=== PATIENT | female | born 1970 | race Caucasian/White ===

== ENCOUNTER 2024-08-07 07:59 | Outpatient (CLI) | payer OTHER, SELFPAY ==
[2024-08-07 20:11] LABS: Anion Gap 9 mmol/L (4-12); Blood Urea Nitrogen 12 mg/dL (7-17); Calcium 9.5 mg/dL (8.4-10.2); Carbon Dioxide 27 mmol/L (22-30); Chloride 100 mmol/L (98-107); Estimated Glomerular Filt Rate > 60; Glucose 104 mg/dL (65-110); Sodium 136 mmol/L (137-145)
--- OUTSIDE RECORDS SUMMARY | 2024-08-09 15:54 | XMS_ITS | Clinical Summary ---
Author Organization [facility] Medical Office Building [address] Address [address] [place] [address] Care Team Providers Care Grab Operator Name Role Phone Daniel Nevarez MD Primary Care Provider [phone] Yayo Nieto DPM Unavailable [phone] Allergies No known active allergies Medications spironolactone (ALDACTONE) 100 mg tablet Take 1 tablet (100 mg total) by mouth daily 022 Active cyanocobalamin (Vitamin B-12) 1,000 mcg/mL injection Inject 1 mL (1,000 mcg total) into the muscle as instructed Once a month 022 Active valACYclovir (VALTREX) 500 mg tablet TAKE 1 TABLET BY MOUTH EVERY DAY 90 tablet 024 Active SUMAtriptan (IMITREX) 100 mg tabletIndicati ons:Migraine Take 1 tablet (100 mg total) by mouth once as needed for migraine May repeat after 2 hours. 27 tablet 4 024 Active ammonium lactate (AMLACTIN) 12 % cream Apply topically as needed for dry skin Active testosterone, bulk, powder Bio Pellets every 3 months 0 024 Active Mounjaro 7.5 mg/0.5 mL pen injector INJECT 1 SYRINGE SUBCUTANEOUSLY ONCE A WEEK DIRECTED 024 Active cephalexin (KEFLEX) 500 mg capsule Take 1 capsule (500 mg total) by mouth 3 (three) times a day 21 capsule 024 Active oxyCODONE-acet aminophen (PERCOCET) 5-325 mg per tabletIndicati ons:Pain Take 1 tablet by mouth every 4 (four) hours as needed for pain 30 tablet Active omeprazole (PriLOSEC) 20 mg capsuleIndicat ions:Gastroeso phageal reflux disease without esophagitis TAKE 1 CAPSULE BY MOUTH EVERY DAY 100 capsule 1 024 Active escitalopram (LEXAPRO) 20 mg tablet TAKE 1 TABLET BY MOUTH EVERY DAY 100 tablet 1 024 Active lisdexamfetami ne (VYVANSE) 20 mg capsule Take 1 capsule (20 mg total) by mouth every morning 30 capsule 025 Active omeprazole (PriLOSEC) 20 mg capsuleIndicat ions:Gastroeso phageal reflux disease without esophagitis TAKE 1 CAPSULE BY MOUTH EVERY DAY 90 capsule 3 024 2023 Discontinued escitalopram (LEXAPRO) 20 mg tablet TAKE 1 TABLET BY MOUTH EVERY DAY 90 tablet 1 024 2023 Discontinued lisdexamfetami ne (VYVANSE) 20 mg capsule Take 1 capsule (20 mg total) by mouth every morning 30 capsule 024 2024 Discontinued(R eocindyer) Active Problems Problem Noted Date Diagnosed Date Sacroiliitis 01/12/2024 Assessment & Plan (01/12/2024 9:06 AM CDT): Following with pain management and will continue to do so. Bunion of great toe of right foot 01/12/2024 Assessment & Plan (01/12/2024 9:07 AM CDT): Encouraged supportive shoes. Referral to podiatry for further management. Gastroesophageal reflux disease without esophagi tis 03/30/2022 Assessment & Plan (03/30/2022 10:46 AM CDT): Omeprazole 20mg refilled. Reviewed provocative foods to avoid: caffeine, citrus, ETOH, carbonated drinks, fried/fatty/fast foods & rich/creamy sauces. Reviewed diet/exercise recommendations: 20-30min physicaly activity daily at minimum. Reviewed med Ses & scheduling. Weight loss will help improve GERD sxs. Keep HOB elevated 30 degrees & not eat 2-3 hrs before bedtime. BMI 28.0-28.9,adult 11/26/2021 Assessment & Plan (03/30/2022 10:26 AM CDT): Reviewed need to lose weight, reviewed health benefits. Reviewed recommendations for daily intake & activity 20-30 minutes/day. Discussed healthy diet and importance of regular physical activity. Assessment & Plan (11/26/2021 2:16 PM CDT): Reviewed need to lose weight, reviewed health benefits. Reviewed recommendations for daily intake & activity 20-30 minutes/day. Discussed healthy diet and importance of regular physical activity. Has lost 10# since 08/2021 appt. Annual physical exam 08/27/2021 Assessment & Plan (01/12/2024 8:49 AM CDT): In regard to health maintenance, Colonoscopy utd Mammogram utd WWE utd with SOCIAL MEDIA ASSISTANT DM-annual visual examination and podiatry visits every 3 months advised. Shingrix vaccine recommended ASCVD risk: 307% Eat a healthy diet: focus on lean meats and proteins, more fruits, vegetables and whole grains and low in sugars and fats. Limit red meat and avoid processed meat. Maintain a healthy weight; avoid being overweight. Aim for a normal body mass index (BMI) of 18.5-24.9. Help learning to eat healthier, we can set up appointment with counter checker/maternity nurse. Have an active lifestyle, strive for 30 minutes of moderate exercise 5 times a week and strength or resistance training at least twice a week. Use broad-spectrum (UVA+UVB) sunscreen with SPF 30 or greater, is water resistant, limit time spent in the sun (10 am-4pm), wear hat, wear UV protective clothing, wear sunglasses. Never use a tanning bed. Skin that was irradiated may be more sensitive over your lifetime. Do not smoke or chew tobacco; participate in a smoking cessation program. Limit alcohol intake, 1 drink per day for a woman and 2 drinks per day for a man. Assessment & Plan (08/27/2021 1:38 PM MANUFACTURING ASSOCIATE): 1. Eat a healthy diet: focus on lean meats and proteins, more fruits, vegetables and whole grains and low in sugars and fats. Limit red meat and avoid processed meat. 2. Maintain a healthy weight; avoid being overweight. Aim for a normal body mass index (BMI) of 18.5-24.9. Help learning to eat healthier, we can set up appointment with counter checker/maternity nurse. 3. Have an active lifestyle, strive for 30 minutes of moderate exercise 5 times a week and strength or resistance training at least twice a week. 4. Use broad-spectrum (UVA+UVB) sunscreen with SPF 30 or greater, is water resistant, limit time spent in the sun (10 am-4pm), wear hat, wear UV protective clothing, wear sunglasses. Never use a tanning bed. Skin that was irradiated may be more sensitive over your lifetime. 5. Does not smoke or chew tobacco. 6. Limit alcohol intake, 1 drink per day for a woman. Encounter for screening for lipid disorder 08/27 Assessment & Plan (03/30/2022 10:43 AM CDT): 12/26/19 YW=366 HDL=35 YI=046 LDL=57 TC/HDL=4.8 BVVBDX=526 09/08/21 QF=635 HDL=32 XO=807 LDL=88 TC/HDL=5 KBJFHP=547 Has appt tomorrow for hormonal pellets; to have labs drawn. Will send results to us via [employer]. Reviewed diet/exercise recommendations. Assessment & Plan (08/27/2021 1:38 PM MANUFACTURING ASSOCIATE): 12/26/19 KX=546 HDL=35 YD=641 LDL=57 TC/HDL=4.8 ZSNHWO=362 Lipid panel ordered; will call w/results when received. Reviewed diet/exercise recommendations. Mild episode of recurrent major depressive disor khang 08/27/2021 Assessment & Plan (03/30/2022 10:25 AM CDT): escitalopram 20mg daily. Reports good control of depression w/current regimen. No changes to be made at this time. Reviewed med Ses & scheduling. Reviewed red flags. Assessment & Plan (08/27/2021 2:12 PM MANUFACTURING ASSOCIATE): escitalopram 20mg daily. Reports good control of depression w/current regimen. No changes to be made at this time. Reviewed med Ses & scheduling. Reviewed red flags. Primary osteoarthritis of right hip 05/21/2021 Burning mouth syndrome 12/21/2019 Assessment & Plan (03/30/2022 10:38 AM CDT): Working w/dentist for treatment. They are discussing [facility]. Assessment & Plan (08/27/2021 2:14 PM MANUFACTURING ASSOCIATE): Reviewed neg Gianfranco ab [address] Dr Patino. Discussed gingermints/josh tea, biotene products. Type 2 diabetes mellitus wit hout complication, without long-term current use of insulin ([facility]) 01/24/2019 Assessment & Plan (04/18/2024 3:14 PM CDT): Well controlled on Mounjaro. Will check A1c at next visit. Keep up the great work! Assessment & Plan (01/12/2024 9:05 AM CDT): Well controlled on Mounjaro. No changes. Will continue to monitor. 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 Pain management agreement terminated. Cervicalgia 07/01/2018 Assessment & Plan (08/03/2023 2:06 PM MANUFACTURING ASSOCIATE): Neurovascularly intact. She will call pain management today for follow-up. Will E scribed Flexeril to take. Discussed the sedative affects so use with caution. Will monitor response. Elevated testosterone level in female 02/15/2018 Overview (02/15/2018): Managed by [facility] in [place]. Lumbar facet arthropathy 09/04/2017 Trochanteric bursitis of both hips 09/04/2017 Assessment & Plan (09/04/2017 8:30 PM MANUFACTURING ASSOCIATE): Chronic-injections done in January by Dr. Mora. Following up with him prn. Using hydrocodone prn. Attention deficit disorder 02/05/2015 Overview (08/30/2017): ADHD dx 6 yrs Assessment & Plan (04/18/2024 3:14 PM CDT): Well controlled on Vyvanse 20 mg. Tolerating without side effects. No changes. Will continue to monitor. Assessment & Plan (08/03/2023 2:07 PM MANUFACTURING ASSOCIATE): Will down titrate to Vyvanse 20 mg as she had better results with this dose. Will monitor response. Assessment & Plan (03/30/2022 10:24 AM CDT): Reports improvement in work/family with medications to control ADD. Script for vyvanse 20mg daily sent. Refilled today. Aware to monitor weight/HR/BP. Reviewed medication side effects and scheduling. Reviewed red flags. Assessment & Plan (11/26/2021 2:17 PM CDT): Reports improvement in work/family with medications to control ADD. Script for vyvanse 20mg daily sent. Aware to monitor weight/HR/BP. Reviewed medication side effects and scheduling. Reviewed red flags. Assessment & Plan (08/27/2021 2:10 PM MANUFACTURING ASSOCIATE[place] in the past 12 mos. Has not had filled since seeing Dr Jensen in 2018. Worsening focus/concentration w/increased stress running [employer]. vyvanse 20mg daily filled. Aware to monitor weight/HR/BP. Reviewed medication side effects and scheduling. Reviewed red flags. Aware that she will need to be seen every 3 months. Assessment & Plan (09/04/2017 8:15 PM MANUFACTURING ASSOCIATE): Well controlled with Vyvanse. Will continue with 20 mg daily. GERD (gastroesophageal reflux disease) 4 Overview (04/07/2022): GERD (gastroesophageal reflux disease) Assessment & Plan (09/04/2017 8:16 PM MANUFACTURING ASSOCIATE): Well controlled with Nexium Migraine without aura and wi thout status migrainosus, not intractable 11/08/2012 Overview (10/21/2016): Migraines Assessment & Plan (08/03/2023 2:07 PM MANUFACTURING ASSOCIATE): Chronic intermittent. Exacerbated with recent neck pain flare. Will work on treating neck pain. Will also E scribed Imitrex. We reviewed red flags. If not improving recommend follow-up with Neurology. She is agreeable with plan and states understanding. Resolved Problems Problem Noted Date Diagnosed Date Resolved Date Class 1 obesity due to exces s calories without serious comorbidity with body mass index (BMI) of 30.0 to 30.9 in adult 08/27/2021 Assessment & Plan (08/27/2021 1:39 PM MANUFACTURING ASSOCIATE): Reviewed need to lose weight, reviewed health benefits. Reviewed recommendations for daily intake & activity 20-30 minutes/day. Influenza vaccine administered 08/27/2021 11/26/2021 Assessment & Plan (08/27/2021 1:39 PM MANUFACTURING ASSOCIATE): Flu vaccine given today. Discussed possible tenderness/redness at injection site. Encounter for screening colonoscopy 05/28/2021 08/27/2021 Overview (05/28/2021): Added automatically from request for surgery [id number] Impingement syndrome of right shoulder 07/27/2019 08/27/2021 Overview (07/27/2019): Added automatically from request for surgery [id number] Arthritis of right acromioclavicular joint 07/27/2019 08/27/2021 Overview (07/27/2019): Added automatically from request for surgery [id number] Incomplete tear of right rotator cuff 07/27/2019 08/27/2021 Overview (07/27/2019): Added automatically from request for surgery [id number] Biceps tendinitis of right upper extremity 07/27/2019 08/27/2021 Overview (07/27/2019): Added automatically from request for surgery [id number] Chondromalacia of patella 06/30/2018 Injury, other and unspecifie d, knee, leg, ankle, and foot 06/30/2018 08/27/2021 Pre-diabetes 02/02/2018 03/30/2022 Mood disorder (CMS/HCC) 02/02/201808/18 Stomatitis and mucositis 02/02/201804/2022 Bilateral chronic knee pain 09/04/2017 08/27/2021 Assessment & Plan (09/04/2017 8:27 PM MANUFACTURING ASSOCIATE): Saw Dr Mora, orthopedist in December 2016. X-rays indicated no significant arthritis noted. On Meloxicam. Using Hydrocodone prn. BMI 27.0-27.9,adult 09/04/2017 02/03/20 18 Assessment & Plan (09/04/2017 8:32 PM MANUFACTURING ASSOCIATE): Obesity is increased by 10 lbs since January. . Discussed the patient's BMI. The BMI is above average; BMI management plan is completed. General weight loss/lifestyle modification strategies discussed (elicit support from others; identify saboteurs; non-food rewards, etc). Mammogram abnormal 08/18/2016 8 Encounters Date Type Department Care Team Description 07/26/2024 Orders Only Family Phys[facility] [address] [address] Daniel Nevarez MD 06/01/2024 1:59 PM MANUFACTURING ASSOCIATE Anesthesia Event [facility] Operating Room [address] [place] [address] Chi Mason MD [place], Emenike Lorenzo Jr., MD 06/01/2024 1:30 PM MANUFACTURING ASSOCIATE - 06/01/2024 3:00 PM MANUFACTURING ASSOCIATE Surgery [facility] Operating Room [address] [place] [address] Yayo Nieto, DPM KOREY BUNIONECTOMY- WITH 3.0MM MIKE SCREW 06/01/2024 11:38 AM MANUFACTURING ASSOCIATE - 06/01/2024 4:31 PM MANUFACTURING ASSOCIATE Hospital Encounter [facility] Operating Room [address] [place] [address] Yayo Nieto, DPJesse Bunion of right foot Discharge Disposition: Discharge to home or self care 06/01/2024 Orders Only [facility] Operating Room [address] [place] [address] Yayo Nieto DPM from Last 3 Months Immunizations Name Administration Dates Next Due Influenza, Quadrivalent, Spl it, Preservative Free, Intramuscular 08/03/2023,08/27/2021,08/06/2020 Influenza, Split 05/13/2010,04/17/2009 Influenza, Trivalent, IM (MDV) 06/27/2012 Influenza, Trivalent, Preser vative Free, Intramuscular 04/18/2024 Influenza, Unspecified 04/06/2023(Deferr ed: Patient Refused),09/23/2022(Deferred: Patient Refused),08/23/2022(Deferred: Patient Refused),07/28/2022(Deferred: Patient Refused),04/21/2022(Deferred: Patient Refused),03/30/2022(Deferred: Patient Refused),03/18/2022(Deferred: Patient Refused),09/06/2019(Deferred: Patient Refused),07/18/2019(Deferred: Patient Refused),07/18/2019(Deferred: Patient Refused),03/18/2019(Deferred: Patient Refused),07/18/2018(Deferred: Patient Refused),06/30/2018(Deferred: Patient Refused),04/17/2018(Deferred: Patient Refused) Pneumococcal Conjugate Pcv20 03/30/2022(Deferred : Patient Refused) Tdap 07/18/2004 Surgical History Surgery Date Site/Laterality Comments AUGMENTATION MAMMOPLASTY 07/18/2007 - 07/17/2008 augmentation mammoplasty SECTION section x2 AUGMENTATION MAMMOPLASTY 07/18/2008 - 07/17/2009 breast augmentation KNEE SURGERY 07/18/2011 - 07/17/2012 Left knee surgery, lateral release- arthroscopic PARTIAL HYSTERECTOMY 07/18/1997 - 07/17/1998 NECK SURGERY Disc replacement. HERNIA REPAIR 07/18/2014 - 07/17/2015 AUGMENTATION MAMMAPLASTY 07/18/2008 - 07/17/2009 Bilateral HYSTERECTOMY 07/18/1995 - 07/17/1996 FLUORO GUIDED INJECTION HIP RIGHT 05/29/2021 Right SHOULDER SURGERY Right rt rotator cuff repair COLONOSCOPY 09/17/2021 COSMETIC SURGERY 07/18/2008 - 07/17/2009 SECTION 1990 1994 SPINE SURGERY 2013 neck FLUORO GUIDED INJECTION HIP RIGHT 12/01/2021 Right FLUORO GUIDED INJECTION HIP RIGHT 01/04/2023 Right Medical History Medical History Date Comments History of Chiari malformation Migraine Pre-diabetes Hirsutism patient does not has this diagnosis 08/07/2019 ADD (attention deficit disorder) Smoking Burning mouth syndrome 12/24/2019 per patie nt Mouth pain GERD (gastroesophageal reflux disease) 1994 Depression 1990 Type 2 diabetes mellitus wit hout complication, without long-term current use of insulin ([facility]) (HCC) 01/24/2019 Family History Medical History Relation Name Comments Alcohol abuse Father Lobito el Alcoholism; Hyperlipidemia Father Lobito el Hyperlipidemi a; Hypertension Father Lobito el Hypertension; Obesity Father Lobito el Obesity; Other Father Lobito el Alive and well; Depression Mother Barbara Davis Heart disease Mother Barbara Davis Heart disease; Hypertension Mother Barbara Zanebeto Hypertension; Osteoporosis Mother Barbara Davis Osteoporosis; Other Mother Barbara Davis accidental; Cau se of : accidental Cancer Other 2 Cancer -; Diabetes Other 3 Diabetes mellit us; Heart disease Other 4 Heart disease; Asthma Other 5 Family history of Asthma; Diabetes Other 6 Family history of Diabetes mellitus; Hyperlipidemia Other 7 Family histor y of Hyperlipidemia; Cancer Other 8 Family history of cancer; Other Other 9 Family history of herpes; Alcohol abuse Other 10 Family history of Alcoholism; Heart disease Other 11 Family history of Heart disease; Diabetes Syed Monroe Diabetes ryan litus; Mental illness Son Urbano Monroe Relation Name Status Comments Father Lobito el Alive Mother Barbara Davis (Age 42) Other 1 Alive Other 2 Other 3 Other 4 Other 5 Other 6 Other 7 Other 8 Other 9 Other 10 Other 11 Son Urbano Monroe Social History Tobacco Use Types Packs/Day Years Used Date Smoking Tobacco: Former Cigarettes 0.5 5 Q uit: 04/26/2021 Vaping Smokeless Tobacco: Never Tobacco Cessation:Counseling Given: Yes Comments:Smoking History Packs/day: 0.5 Packs Alcohol Use Standard Drinks/Week Comments Yes 0 (1 standard drink = 0.6 oz pur e alcohol) socially Social Connection and Isolat ion Panel [NHANES] Answer Date Recorded In a typical week, how many times do you talk on the phone with family, friends, or neighbors? More than three times a week 03/22/2023 How often do you get togethe r with friends or relatives? More than three times a week 03/22/2023 How often do you attend chur ch or yazidi services? 1 to 4 times per year 03/22/2023 Do you belong to any clubs o r organizations such as temple groups, unions, fraternal or athletic groups, or school groups? No 03/22/2023 How often do you attend meet ings of the clubs or organizations you belong to? Not asked 03/22/2023 Are you , , di vorced, , never , or living with a partner? Never 03/22/2023 AUDIT-C Answer Date Recorded Q1: How often do you have a drink containing alc ohol? 2-3 times a week 06/01/2024 Q2: How many drinks containi ng alcohol do you have on a typical day when you are drinking? 1 or 2 06/01/2024 Q3: How often do you have si x or more drinks on one occasion? Never 06/01/2024 Overall Financial Resource Strain (CARDIA) Answe r Date Recorded How hard is it for you to pa y for the very basics like food, housing, medical care, and heating? Not very hard 03/22/2023 PHQ-2 Answer Date Recorded PHQ-2 Total Score (If total score is 3 or more points, staff should administer the PHQ-9) 0 01/12/2024 [facility] - Occupational Stress Questionnaire Answer Date Recorded Do you feel stress - tense, restless, nervous, or anxious, or unable to sleep at night because your mind is troubled all the time - these days? Very much 03/22/2023 Exercise Vital Sign Answer Date Recorde d On average, how many days pe r week do you engage in moderate to strenuous exercise (like a brisk walk)? 5 days 03/22/2023 On average, how many minutes do you engage in exercise at this level? 100 min 03/22/2023 Hunger Vital Sign Answer Date Recorded Within the past 12 months, y ou worried that your food would run out before you got the money to buy more. Never true 03/22/20 23 Within the past 12 months, t he food you bought just didn't last and you didn't have money to get more. Never true 03/22/2023 PRAPARE - Transportation Answer Date Re corded In the past 12 months, has l ack of transportation kept you from medical appointments or from getting medications? No 11/2022 In the past 12 months, has l ack of transportation kept you from meetings, work, or from getting things needed for daily living? No 03/22/2023 Housing Stability Vital Sign Answer Micky e Recorded In the last 12 months, was t here a time when you were not able to pay the mortgage or rent on time? No 03/22/2023 In the last 12 months, how many places have you lived? 1 03/22/2023 In the last 12 months, was t here a time when you did not have a steady place to sleep or slept in a group home (including now)? No 03/22/2023 Personal Safety Answer Date Recorded Have you ever been in or are you currently in a harmful physical or emotional relationship or is someone making you feel afraid or unsafe? 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 Not on file Not on file Not on file Obstetrics History Para Term AB IAB SAB Ectopic Multiple Livin g Live Births 2 2 2 2 Date Outcome GA Total Labor Labor/2nd/3rd Weight Sex Type Anes PTL Moni A1 A5 Name Clin Term Term Last Filed Vital Signs Vital Sign Reading Time Taken Comments Blood Pressure 117/72 06/01/2024 4:25 PM MANUFACTURING ASSOCIATE Pulse 67 06/01/2024 4:25 PM MANUFACTURING ASSOCIATE Temperature 36.4 ??C (97.6 ??F) 06/01/2024 4:25 PM CS T Respiratory Rate 20 06/01/2024 4:25 PM MANUFACTURING ASSOCIATE Oxygen Saturation 99% 06/01/2024 4:25 PM MANUFACTURING ASSOCIATE Inhaled Oxygen Concentration - - Weight 74.9 kg (165 lb 2 oz) 06/01/2024 11:50 AM MANUFACTURING ASSOCIATE Height 170.2 cm (5' 7 ) 06/01/2024 11:50 AM MANUFACTURING ASSOCIATE Body Mass Index 25.86 06/01/2024 11:50 AM MANUFACTURING ASSOCIATE Plan of Treatment Health Maintenance Due Date Last Done Comments Pneumococcal vaccine <65 (1 of 2 - PCV) 1976 DTaP/Tdap/Td Vaccine (2 - Td or Tdap) 07/18/2014 07/18/2004 Zoster Vaccine (1 of 2) 2020 Dilated Eye Exam 06/26/2022 06/26/2021 Hemoglobin A1C 07/11/2024 01/10/2024, 0 08/2023, 04/06/2023, Additional history exists Breast Cancer Screening-Mammogram 12/30/2024 12/31/2023, 10/13/2022, 10/05/2021, Additional history exists Albumin Creatinine Ratio, Urine 01/09/2025 , 08/19/2022 Depression Screening 01/11/2025 01/12/2024, 10/03/2023, 10/03/2023, Additional history exists Foot Exam 01/11/2025 01/12/2024, 08/23/2022 Regular Well Visit/Exam 18-64 02/26/2025, 01/12/2024, 08/31/2022, Additional history exists Lipid Panel 04/16/2025 04/16/2024, 0 08/2023, 08/19/2022, Additional history exists eGFR 04/16/2025 04/16/2024, 03/18, 09/23/2022, Additional history exists Colon Cancer Screening-Colonoscopy 09/18/2031 09/17/2021 Cervical Cancer Screening Discontinued 05/01/2017 Hepatitis B Screening Completed 03/31/2023 Hepatitis C Screening Completed 03/31/2023, 014 Influenza Vaccine Completed 04/18/2024, , 08/27/2021, Additional history exists Goals Goal Patient Goal Type Associated Problems Recent Progress Patient-Stated? Author CCM Chronic Pain Care Plan Chronic Care Management Daily Chavez, RN Note: Problem: Chronic Pain Goals: 1. Minimize further functional decline 2. Maximize quality of life 3. Control pain Strategies: - Activity/exercise program recommendation - Conservative stepwise pain medicine strategy with multi-disciplinary approach - Recommend healthy lifestyle strategies and compensatory methods as needed Reduce the likelihood of falling Lifestyle Daily Chavez, LIBERTY Note: Below are four things you can do to prevent falls: Begin an exercise program to improve your leg strength & balance Ask your doctor or pharmacist to review your medicines Get annual eye check-ups & update your eyeglasses Make your home safer by: Removing clutter & tripping hazards Putting railings on all stairs & adding grab bars in the bathroom Having good lighting, especially on stairs Contact your local community or senior center for information on exercise, fall prevention programs, or options for improving home safety. Medical Devices Implanted Type Area Steel Molder Device Identifier Shelf Expiration Date Model / Serial / Lot [employer]/Or tho [id number] Implant Medium Arthroscopic Bioinductive W/ Delivery Device - [id number] Implanted:Qty: 1 on 08/09/2019 by K[facility]em Olmed[facility] at [facility] Hospital Right: Shoulder [employer]/Or tho 02/22/2022 [id number] / / [id number] [employer] 2504-1 Regenerate Tendon Wayne Suture - [id number] Implanted:Qty: 1 on 08/09/2019 by Kareem Olmedo MD at [facility] Right: Shoulder [employer] 12/23/2019 2504-1 / / [id number] Bone Anchors Implanted:Qty: 1 on 08/09/2019 by Kareem Olmedo MD at [facility] Right: Shoulder [employer] [id number] 03/10/2022 [id number] / / [id number] [employer] Asnis 3mm 22mm 5mm Self Cut Cannulated Color Coded Low Profile [id number] - [id number] Implanted:Qty: 1 on 06/01/2024 by Yayo Nieto DPM at [facility] Right: Foot [employer] [id number] / / Procedures Procedure Name Priority Date/Time Associated Diagnosis Comments XR FOOT RIGHT 2 VIEWS IP Routine 06/01/2024 3:47 PM MANUFACTURING ASSOCIATE Bunion of right foot FL FLUOROSCOPY < 1 HOUR IP Routine 06/01/2024 3:47 PM MANUFACTURING ASSOCIATE Bunion of right foot VT AN ELECTIVE SUPRAGLOTTIC AIRWAY Routine 06/01/2024 2:13 PM MANUFACTURING ASSOCIATE BUNIONECTOMY/HAMMERT OE REPAIR/OSTEOTOMY 06/01/2024 1:44 PM MANUFACTURING ASSOCIATE HALLUX ABDUCTO VALGUS RIGHT FOOT ANESTHESIA PERIPHERAL BLOCK Routine 06/01/2024 12:45 PM MANUFACTURING ASSOCIATE POTASSIUM, WHOLE BLOOD STAT 06/01/2024 12:08 PM MANUFACTURING ASSOCIATE POCT GLUCOSE DEVICE Routine 06/01/2024 1 2:07 PM MANUFACTURING ASSOCIATE SURGICAL PATHOLOGY Routine 06/01/2024 11 :01 AM MANUFACTURING ASSOCIATE EGFR Routine 04/16/2024 1:31 PM CDT Type 2 diabetes mellitus without complication, without long-term current use of insulin ([facility]) Lipid screening LIPID PANEL Routine 04/16/2024 1:31 PM CDT Type 2 diabetes mellitus without complication, without long-term current use of insulin ([facility]) Lipid screening HEMOGLOBIN A1C Routine 01/10/2024 10:52 AM CDT Type 2 diabetes mellitus without complication, without long-term current use of insulin ([facility]) ALBUMIN CREATININE RATIO, URINE Routine 01/10/2024 10:52 AM CDT Type 2 diabetes mellitus without complication, without long-term current use of insulin (CMS/HCC) (HCC) SCREENING MAMMOGRAM BILATERAL W AMRIK W IMPLANTS Schedule Routine, Read Routine (OP Routine) 12/31/2023 9:14 AM CDT Screening mammogram, encounter for HEPATITIS C ANTIBODY Routine 03/31/2023 7:33 AM CDT Chronic pain syndrome Polyarthralgia Screening for viral disease COLONOSCOPY 09/17/2021 9:55 AM MANUFACTURING ASSOCIATE DIABETIC EYE EXAM Routine 06/26/2021 HM PAP SMEAR WITH HPV Routine 05/01/2017 from Last 3 Months or Most Recently Relevant to Health Maintenance Results * FL Fluoroscopy < 1 Hour (06/01/2024 3:47 PM MANUFACTURING ASSOCIATE) Narrative [facility] - 06/01/2024 3:47 PM MANUFACTURING ASSOCIATE The images from this study are not interpreted by Radiology. ??Please refer to the physician's procedure / OR operative note. Yayo Nieto DPM IMG FLUOROSCOPY PROCEDURES Final Result [facility] * XR Foot Right 2 Views (06/01/2024 3:47 PM MANUFACTURING ASSOCIATE) Anatomical Region Laterality Modality Lower Extremities, Foot Right Radio Fl uoroscopy 06/03/2024 5:35 PM MANUFACTURING ASSOCIATE Narrative 06/03/2024 5:36 PM MANUFACTURING ASSOCIATE EXAM DESCRIPTION: XR FOOT RIGHT 2 VIEWS REASON FOR STUDY: Other (type) ?? Right bunion repair ??FT: ??0.96 seconds ??MGY: 0.0245 ? FINDINGS: Multiple fluoroscopic images consisting of ??2 ??view(s) submitted without comparison. ?? Reference air kerma equals 0.0245 mGy. Fluoroscopic images demonstrate an in progress ??1st metatarsal osteotomy with bunionectomy . ??Soft tissue gas is present. IMPRESSION: In progress right 1st metatarsal osteotomy with bunionectomy. THIS IS AN ELECTRONICALLY VERIFIED FINAL REPORT 06/03/2024 5:36 PM - Electronically signed by ??Nawaf Gutierrez M.D. MF: GUNNAR D: ??06/03/2024 5:36 PM T: ??06/03/2024 5:36 PM Report ID: [id number] Reading Location: ??[id number] Procedure Note Nawaf Gutierrez MD - 06/03/2024 EXAM DESCRIPTION: XR FOOT RIGHT 2 VIEWS REASON FOR STUDY: Other (type) Right bunion repair FT: 0.96 seconds MGY: 0.0245 FINDINGS: Multiple fluoroscopic images consisting of 2 view(s) submitted without comparison. Reference air kerma equals 0.0245 mGy. Fluoroscopic images demonstrate an in progress 1st metatarsal osteotomywith bunionectomy . Soft tissue gas is present. IMPRESSION: In progress right 1st metatarsal osteotomy with bunionectomy. THIS IS AN ELECTRONICALLY VERIFIED FINAL REPORT 06/03/2024 5:36 PM - Electronically signed by Nawaf Gutierrez M.D. MF: GUNNAR Report ID: [id number] Reading Location: [id number] Yayo Nieto DPM IMG XR PROCEDURES Final Re sult * VT AN ELECTIVE SUPRAGLOTTIC AIRWAY (06/01/2024 2:13 PM MANUFACTURING ASSOCIATE) Narrative Elliot Mendez CRNA - 06/01/2024 2:13 PM MANUFACTURING ASSOCIATE Elliot Mendez CRNA ? 06/01/2024 ??2:13 PM Airway Patient location: OR Urgency: elective Indications for airway management: anesthesia and airway protection Difficult airway: no Staff: Placed by: SHEELA: Elliot Mendez CRNA Emergent airway documentation: Risks and benefits discussed: yes Consent obtained: yes Consent given by: patient Airway prep: Preoxygenated: yes Patient position: sniffing Mask difficulty assessment: 0 - not attempted Spontaneous ventilation during airway: absent Sedation level during airway: GA Final airway details: Final airway type: supraglottic airway Final supraglottic airway: unique SGA size: 4 Number of attempts: 1 Planned trial extubation: yes Additional comments: Atraumatic LMA placement. No GERD sx today. Chi Mason MD ANESTHESIA ORDERABLES Final Result * Peripheral Block (06/01/2024 12:45 PM MANUFACTURING ASSOCIATE) Narrative Chi Mason MD - 06/01/2024 12:45 PM MANUFACTURING ASSOCIATE Chi Mason MD ? 06/01/2024 12:45 PM Peripheral Block Patient location during procedure: block room End time: 06/01/2024 12:45 PM Reason for block: post-op pain management per surgeon request Ultrasound image in chart or stored: yes Block type: single shot Laterality: right Block type: sciatic nerve block - popliteal Staff: Placed by: Anesthesiologist: Chi Mason MD Procedure prep: Preprocedure checklist: patient identified, procedure contraindications assessed, site marked, procedure consent, surgical consent, IV checked, risks, benefits and alternatives discussed, monitors and equipment checked and timeout performed Patient position: left lateral decubitus Procedure performed while patient: sedate with meaningful contact Monitoring: ECG, oximetry and blood pressure Supplemental O2: nasal cannula Prep solution: chlorhexidine/alcohol PPE: sterile gloves and provider hat/mask Skin infiltrated with lidocaine 1%: yes Peripheral nerve block: Technique: ultrasound guided Needle type: insulated and echogenic Needle gauge: 21 G Needle length: 100 mm Injection assessment: injection made incrementally with constant monitoring, local visualized surrounding nerve on ultrasound, negative aspiration for heme, no paresthesias noted, normal resistance to injection and see flowsheet for medication details Assessment: Block success: full evaluation pending Events: patient tolerated procedure well with no complications Result [facility] Chi Mason MD ANESTHESIA ORDERABLES Final Result * Potassium, whole blood (06/01/2024 12:08 PM MANUFACTURING ASSOCIATE) Potassium, bld 3.7 3.3 - 4.9 mmol/L Comment: Interpretive Data This method is not able to assess for hemolysis, which may falsely increase potassium concentrations. If further testing is needed to evaluate this result, consider in-laboratory plasma potassium. Current Interpretive Data was last revised on 2022. Blood 06/01/2024 12:0 8 PM MANUFACTURING ASSOCIATE 06/01/2024 12:13 PM MANUFACTURING ASSOCIATE us Chi Mason MD LAB BLOOD ORDERABLES F inal Result JESSE GOME[facility] ([place]) [address] [place] [address] Department [place] [address] * POCT glucose (06/01/2024 12:07 PM MANUFACTURING ASSOCIATE) Glucose, POC 93 70 - 199 mg/dL Blood 06/01/2024 12:0 7 PM MANUFACTURING ASSOCIATE 06/01/2024 12:07 PM MANUFACTURING ASSOCIATE us Yayo BRINKM LAB POCT ORDERABLES - DUANE CE Final Result Performing Organization Address [facility] Co de Phone Number JESSE [facility] ([place]) [address] [place] [address] Department [place] [address] * Surgical pathology (06/01/2024 11:01 AM MANUFACTURING ASSOCIATE) Bone Fragment(s), 06/01/2024 11:01 AM MANUFACTURING ASSOCIATE 06/04/2024 11:01 AM MANUFACTURING ASSOCIATE Narrative 06/06/2024 4:27 PM MANUFACTURING ASSOCIATE EPIC results best viewed via link to PDF [facility] Department of Pathology [address] [place] [id number] Note to Patients: This report may contain a detailed description of human tissue sent by a health care provider to the laboratory for pathologic evaluation. The content of this report is essential for diagnosis and may provide important critical findings. This information may be unfamiliar to patients to review without a medical professional present. It is advised that the patient review this report in the presence of a health care provider who can answer questions and explain the details. Final Report Patient Name: ??SANDER SOLANO Duncan Address: ??[address] [place] [address], ??[place], [place] ??[address] Gender: ??F : ??1970 (Age: 53) Service: ??Surgery Location: ??[facility] Hospital #: ??[id number] Patient Type: ??[facility] Accession # ?[id number] Taken: ??06/01/2024 Received: ??06/04/2024 Accessioned: ??06/04/2024 Reported: ??06/06/2024 Physician(s):Yayo Nieto DPM Diagnosis: A. Right lower extremity, great toe osteophyte, bunionectomy - ? Benign osseous tissue with degenerative change Echo Pinto M.D. Report Electronically Reviewed and Signed Out By ??Echo Pinto M.D. ??06/06/2024 16:27:18 Specimen(s) Received: A: Right great toe osteophyte Microscopic Description: Microscopic examination corroborates the diagnosis. ?? Clinical History: Hallux abducto valgus right foot. ??Korey bunionectomy - with 3.0 mm [place] screw. ?? Gross Description: Received in a single formalin filled container labeled with SANDER SOLANO and right great toe osteophyte . ??It is a discoid shaped piece of doll bone measuring 2.3 x 1.5 cm. ??The specimen is decalcified. ??All in 1 cassette. Kodi Mathews R.N., P.A./Yvrose Segal M.D. REPORT IMAGES AND SCANNED DOCUMENTS, IF INCLUDED, ONLY VIEWABLE IN PDF VERSION OF REPORT The performance characteristics of some immunohistochemical stains, fluorescence in-situ hybridization tests and immunophenotyping by flow cytometry cited in this report (if any) were determined by the Surgical Pathology Department at [facility] as part of an ongoing quality assurance technician program and in compliance with federally mandated regulations drawn from the Clinical Laboratory Improvement Act of 1988 (CLIA '88). ??Some of these tests rely on the use of analyte specific reagents and are subject to specific labeling requirements by the US Food and Drug Administration. ??Such diagnostic tests may only be performed in a facility that is certified by the Department of Health and Human Services as a high complexity laboratory under CLIA '88. The FDA has determined that such clearance or approval is not necessary. ??This test is used for clinical purposes. ??It should not be regarded as investigational or for research. ??Nevertheless, federal rules concerning the medical use of analyte specific reagents require that the following disclaimer be attached to the report: This test was developed and its performance characteristics determined by the Surgical Pathology Department [facility]. ??It has not been cleared or approved by the U. S. Food and Drug Administration. Note for decalcified specimens: This assay has not been validated on decalcified tissues. Results should be interpreted with caution given the possibility of false negativity on decalcified specimens Yayo Nieto [facility] LAB PATHOLOGY ORDERABLES F inal Result * eGFR (04/16/2024 1:31 PM CDT) eGFR >90 >=60 mL/min/1. 73 m2 Comment: Interpretive Data Reference Interval Normal ?>/= 90 mL/min/1.73m2 Mildly decreased* ? 60 - 89 mL/min/1.73m2 Mildly to moderately decreased ?45 - 59 mL/min/1.73m2 Moderately to severely decreased ??30 - 44 mL/min/1.73m2 Severely decreased ?15 - 29 mL/min/1.73m2 Kidney Failure ?< 15 ??mL/min/1.73m2 *Relative to young adult level Estimated glomerular filtration rate is determined by the 2020 CKD-EPI equation recommended by the National Kidney Foundation (A Unifying Approach to GFR Estimation: Recommendations of the NKF-ASK Task Force on Reassessing the Inclusion of Race in Diagnosing Kidney Disease, JASN 202). The CKD-EPI equation should not be used for patients with unstable renal function and has not been validated in children and those over 70. Current interpretive data was last reviewed 2021. Blood 04/16/2024 1:31 PM CDT 04/16/2024 6:02 PM CDT us Luisa Llanes ASH CONVEYOR OPERATOR LAB BLOOD ORDERABLES Final Result JESSE [address] Department [place] [address] * Lipid panel (04/16/2024 1:31 PM CDT) Cholesterol 167 30 - 199 mg/dL Comment: Interpretive Data Ages < or = 19 years ??Acceptable: ? <170 mg/dL ??Borderline high: ??170-199 mg/dL ??High: ? >or= 200 mg/dL Ages > or = 20 years ??Desirable: ?<200 mg/dL ??Borderline high: ??200-239 mg/dL ??High: ? >or= 240 mg/dL Literature References: 1. Expert Panel on Integrated Guidelines for Cardiovascular Health and Risk Reduction in Children and Adolescents. Pediatrics 2011;128:S213 2. NCEP Expert Panel. Circulation 2004;110:227 Current Interpretive Data was last revised on 2018. Triglycerides 121 <=149 mg/dL JESSE SANOTS Comment: Interpretive Data Ages < or = 9 years ??Acceptable: ? <75 mg/dL ??Borderline high: ??75-99 mg/dL ??High: ? >or= 100 mg/dL Ages 10 to 20 years ??Acceptable: ? <90 mg/dL ??Borderline high: ??90-129 mg/dL ??High: ? >or= 130 mg/dL Ages > or = 20 years ??Desirable: ?<150 mg/dL ??Borderline high: ??150-199 mg/dL ??High: ? 200-499 mg/dL ?Very high: ?? >or= 499 mg/dL Literature References: 1. Expert Panel on Integrated Guidelines for Cardiovascular Health and Risk Reduction in Children and Adolescents. Pediatrics 2011;128:S213 2. NCEP Expert Panel. Circulation 2004;110:227 Current Interpretive Data was last revised on 2018. HDL 40 >=40 mg/dL JESSE Comment: Interpretive Data Ages < or = 19 years ??Acceptable: ? >45 mg/dL ??Borderline low: ?? 40-45 mg/dL ??Low: ? <40 mg/dL Ages > or = 20 years ??Desirable: ?>or= 60 mg/dL ??Low: ? <40 mg/dL Literature References: 1. Expert Panel on Integrated Guidelines for Cardiovascular Health and Risk Reduction in Children and Adolescents. Pediatrics 2011;128:S213 2. NCEP Expert Panel. Circulation 2004;110:227 Current Interpretive Data was last revised on 2018. LDL, calculated 105 <=129 mg/dL JESSE Comment: Interpretive Data Ages < or = 19 years ??Acceptable: ? <110 mg/dL ??Borderline high: ??110-129 mg/dL ??High: ?>or= 130 mg/dL Ages > or = 20 years ??Optimal: ? <100 mg/dL ??Near optimal: ?100-129 mg/dL ??Borderline high: ?? 130-159 mg/dL ??High: ?>160 mg/dL Calculated using the [place] LDL-C estimating equation. This equation was implemented on 2024. Prior to this date LDL-C was estimated using the Friedewald equation. Literature References: 1. Expert Panel on Integrated Guidelines for Cardiovascular Health and Risk Reduction in Children and Adolescents. Pediatrics 2011;128:S213 2. NCEP Expert Panel. Circulation 2004;110:227 3. [place] Rudolph al. MARILEE Cardiol. 2020 November 15;5(5):540-548. doi: 10.1001/jamacardio.2020.0013 Current Interpretive Data was last revised on 2024. Non-HDL Cholesterol 127 mg/dL JESSE Comment: Interpretive Data Ages < or = 19 years ??Acceptable: ?<120 mg/dL ??Borderline high: ??120-144 mg/dL ??High: ?>145 mg/dL Ages > or = 20 years ??When triglycerides are >200 mg/dL, Non-HDL cholesterol is a secondary target of ? therapy with treatment goals that are 30 mg/dL greater than the LDL cholesterol target. ? Literature References: 1. Expert Panel on Integrated Guidelines for Cardiovascular Health and Risk Reduction in Children and Adolescents. Pediatrics 2011;128:S213 2. NCEP Expert Panel. Circulation 2004;110:227 Current Interpretive Data was last revised on 2018. Chol/HDL ratio 4 JESSE SANTOS Blood 04/16/2024 1:31 PM CDT 04/16/2024 6:00 PM CDT Luisa Llanes NP LAB BLOOD ORDERABLES Final Result [facility]RISTOPH[facility]ESS[facility] [id number] [place] [address] Department [place] [address] * Albumin Creatinine Ratio, Urine (01/10/2024 10:52 AM CDT) Albumin Ur <12.0 mg/L Comment: Interpretive Data No reference range established. Current interpretive data was last revised 2018. Testing performed by: [address] [address] Creatinine Ur 14.7 mg/dL JESSE EVANS) Comment: Interpretive Data No reference range established. Current interpretive data was last revised 2018. Testing performed by: [address] [address] Albumin Creatinine Ratio, Ur See Comment 1 - 29 JESSE EVANS) Comment: Unable to calculate Testing performed by: [address] [address] Urine 01/10/2024 10:5 2 AM CDT 01/10/2024 12:36 PM CDT Luisa Llanes NP LAB URINE ORDERABLES Final Result Performing Organization Address [facility]/ZIP Co de Phone Number JESSE GOMEZ ([place]) [address] [place] [address] * Hemoglobin A1c (01/10/2024 10:52 AM CDT) Hgb A1C 5.2 4.0 - 5.6 % Comment:Testing performed by : [address], [address] Estimated Average Glucose 103 mg/dL J[facility] GOME[facility] ([place]) Comment: The ADA recommends reporting an estimated Average Glucose (eAG) with all Hemoglobin A1c results using the equation derived from a study of 507 normal and diabetic adults. ??Minority populations were underrepresented and children were not included. ?? (Diabetes Care 31:3057-3364, 2008). ??The eAG is not equivalent to a fasting glucose. Testing performed by: [address], [address] Blood 01/10/2024 10:5 2 AM CDT 01/10/2024 12:36 PM CDT Luisa Llanes NP LAB BLOOD ORDERABLES Final Result Performing Organization Address [facility] de Phone Number JESSE GOMEZ ([place]) [address] [place] [address] * Screening Mammogram Bilateral W Amrik W Implants (12/31/2023 9:14 AM CDT) Anatomical Region Laterality Modality Breast Bilateral Mammography 01/02/2024 8:44 AM CDT Impressions 01/02/2024 8:44 AM CDT There is no mammographic evidence of malignancy. A 1 year screening mammogram is recommended. BI-RADS: 1 - Negative. The patient has been or will be contacted. The patient will be entered into a reminder system with a target due date of 1 year for her next mammogram. Electronically signed by: Sadie Hayes M.D. Narrative 01/02/2024 8:44 AM CDT EXAMINATION: SCREENING MAMMOGRAM BILATERAL W AMRIK W IMPLANTS ORDERING HEALTHCARE PROVIDER: SELF SCREENING MAMMOGRAM HISTORY: Routine screening mammography. COMPARISON: ??10/13/2022, 10/05/2021, 10/02/2020, 07/04/2019 TECHNIQUE: CC and MLO views of the bilateral breasts were obtained with digital technique using implant in the implant displaced view utilizing breast tomosynthesis with C view. Computer aided detection was utilized. FINDINGS: DENSITY: There are scattered fibroglandular elements in the bilateral breasts. BREASTS: There are bilateral subpectoral silicone implants. ??The presence of implants limits the sensitivity of mammography. ??There are no suspicious masses, suspicious calcifications, or other suspicious findings in either breast. There has been no suspicious interval change. Self Screening Mammogram IMG MAMMO PROCEDURES Fi nal Result * Hepatitis C antibody Blood (03/31/2023 7:33 AM CDT) Hep C Ab Nonreactive Nonreactive Comment: Interpretive Data Nonreactive: Antibodies to HCV not detected. Does NOT exclude the possibility of recent exposure to HCV. Equivocal: Equivocal for HCV antibodies. Supplemental molecular testing will be automatically performed to determine infection status in accordance with current CDC screening recommendations. ?? Reactive: Positive for HCV antibodies. ??This may represent current or past HCV infection. Supplemental molecular testing will be automatically performed to determine ??current infection status in accordance with current CDC screening recommendations. Interpretive data was last revised on 2019. Testing performed by: [facility], [address] [place] [address], [place]., [address] Blood 03/31/2023 7:33 AM CDT 03/31/2023 11:06 AM CDT Karla Hua MD LAB MICROBIOLOGY - GENE [facility] ORDERABLES Final Result JESSE GOMEZ ([place]) 1 [facility] Department [place] [address] * COLONOSCOPY (09/17/2021 9:55 AM MANUFACTURING ASSOCIATE) Anatomical Region Laterality Modality Other Narrative Procedure Note Jose Mccauley MD - 09/17/2021 9:55 AM CST [facility] Patient Name: Sander Solano Procedure Date: 09/17/2021 9:55 AM Date of : 1970 Admit Type: Outpatient Age: 51 Gender: Female Attending MD: Jose Mccauley M.D. Room: [facility] END[facility]COPY ROOM 2 Note Status: Finalized Patient Profile: Refer to note in patient chart for documentation of history and physical. Procedure: Colonoscopy Indications: Screening for colorectal malignant neoplasm, Thisis the patient's first colonoscopy Referring MD: Daniel Nevarez M.D. Providers: Jose Mccauley M.D. Impression: - Hemorrhoids found on perianal exam. - Diverticulosis in the sigmoid colon. - The examination was otherwise normal. - No specimens collected. Recommendation: - Discharge patient to home. - Resume previous diet. - Continue present medications. - Repeat colonoscopy in 10 years for screening purposes. - Return to primary care physician as previously scheduled. Medicines: Propofol per Anesthesia Complications: No immediate complications. Estimated Blood Loss: Estimated blood loss: none. Procedure: Pre-Anesthesia Assessment: - This assessment was completed [Time ofAssessment] prior to the administration of sedation. The benefits, risks and alternatives of theprocedure and sedation were discussed and informed consentwas obtained. All questions were answered. Please referto the signed informed consent document in the medical record. The bowel preparation used was Miralax and bisacodyl tablets via single dose instruction. The scope was passed under direct vision. TheColonoscope [id number] was introduced through the anus and advanced to the the cecum, identified by appendiceal orifice and ileocecal valve. The colonoscopy was performed without difficulty. The patient tolerated the procedure well. The qualityof the bowel preparation was good. The ileocecalvalve, appendiceal orifice, and rectum were photographed.The colonoscopy was performed without difficulty. The patient tolerated the procedure well. The qualityof the bowel preparation was good. Findings: Hemorrhoids were found on perianal exam. Multiple small and large-mouthed diverticula were found in thesigmoid colon. The exam was otherwise without abnormality. Electronically signed by Jose Mccauley M.D. Jose Mccauley M.D. 09/17/2021 11:27:55 AM Number of Addenda: 0 Note Initiated On: 09/17/2021 9:55 AM Procedure Code(s): --- Professional --- G0121, Colorectal cancer screening; colonoscopy on individual not meeting criteria for high risk Diagnosis Code(s): --- Professional --- K57.30, Diverticulosis of large intestine without perforation orabscess without bleeding K64.9, Unspecified hemorrhoids Z12.11, Encounter for screening for malignant neoplasm of colon CPT copyright 2020 [employer]. All rights reserved. The codes documented in this report are preliminary and upon cosmetology instructor reviewmay be revised to meet current compliance requirements. Recognized by the [place] [employer] for promoting quality in endoscopy us Jose Mccauley MD ENDOSCOPY PROCEDURES Final Re sult * (ABNORMAL) Diabetic Eye Exam (06/26/2021) us Historical Provider HEALTH MAINTENANCE Final Result * PAP SMEAR WITH HPV (05/01/2017) Pap smear Normal us Historical Provider HEALTH MAINTENANCE Final Result from Last 3 Months or Most Recently Relevant to Health Maintenance Insurance [employer] CHOICE PLUS CHOICE PLUS [facility] CHOICE PLUS Advance Directives For more information, please contact: [phone] * Full Code (Latest Code Status on File) Date Activated Date Inactivated Comments 09/17/2021 10:12 AM 09/17/2021 4:23 PM * Full Code Date Activated Date Inactivated Comments 09/17/2021 10:12 AM 09/17/2021 10:12 AM Care Teams Grab Operator Relationship Specialty Start Date End Date Daniel Nevarez MD [address] [place] [address] PCP - General Family Medicine 12/20/19 Yayo Nieto DPM [address] [place] [address] Consulting Physician Orthotics 06/01/24
--- OUTSIDE RECORDS SUMMARY | 2024-08-09 15:54 | XMS_ITS | Referral Summary ---
Author Organization [facility] Address [address] [place] [address] Care Team Providers Care Completion Supervisor Name Role Phone Unavailable Primary Care Provider Unavailabl e Source Comments [facility],non-owned Affiliates and Associated Physician Practices is amultiple site organization consisting of ambulatory clinics and hospital sitesin [place], [place], [place] and [place]. This disclosure is being madepursuant to the Care Everywhere program and may not contain all informatio navailable regarding this patient. Last updated 18.[facility]. [facility] Allergies No known active allergies Medications * Be aware that medications may not be up to date on this document. Alwaysverify current medications with the patient. Medication Sig Dispensed Refills Start Date End Date Status esomeprazole (NEXIUM) 40 MG capsule Take 40 mg by mouth daily before breakfast. Active escitalopram (LEXAPRO) 20 MG tablet Take 20 mg by mouth once daily. Active Social History Tobacco Use Types Packs/Day Years Used Date Smoking Tobacco: Never Assessed Sex and Gender Information Value Date Recorded Sex Assigned at Not on file Gender Identity Not on file Sexual Orientation Not on file Last Filed Vital Signs Vital Sign Reading Time Taken Comments Blood Pressure 121/74 02/01/2011 11:50 AM CDT Pulse 76 02/01/2011 11:55 AM CDT Temperature - - Respiratory Rate 19 02/01/2011 11:55 AM CDT Oxygen Saturation 99% 02/01/2011 11:50 AM CDT Inhaled Oxygen Concentration - - Weight 74.8 kg (165 lb) 02/01/2011 9:33 AM CDT Height 170.2 cm (5' 7 ) 02/01/2011 9:33 AM CDT Body Mass Index 25.84 02/01/2011 9:33 AM CDT Plan of Treatment Not on file
--- OUTSIDE RECORDS SUMMARY | 2024-08-09 15:54 | XMS_ITS | Patient Health Summary ---
Author Organization [facility] Address [address] [place] [address] Care Team Providers Care Bean Picker Name Role Phone Unavailable Primary Care Provider Unavailabl e Note from [facility],non-owned Affiliates and Associated Physician Practices is amultiple site organization consisting of ambulatory clinics and hospital sitesin [place], [place], [place] and [place]. This disclosure is being madepursuant to the Care Everywhere program and may not contain all information available regarding this patient. Last updated 18.[facility] Allergies No known active allergies Medications * Be aware that medications may not be up to date on this document. Alwaysverify current medications with the patient. * esomeprazole (NEXIUM) 40 MG capsule Take 40 mg by mouth daily before breakfast. * escitalopram (LEXAPRO) 20 MG tablet Take 20 mg by mouth once daily. Social History Tobacco Use Types Packs/Day Years [...] Mass Index 25.84 02/01/2011 9:33 AM CDT Procedures * DERMATOPATHOLOGY(Performed 07/05/2023) * VASCULAR LAB ORDER(Performed 02/04/2011) * CARDIAC ECHOCARDIOGRAM COMPLETE ORDER(Performed 02/04/2011) * CARDIAC RHYTHM STRIP ORDER(Performed 02/04/2011) * CARDIAC CATH CONSULT(Performed 02/01/2011) Results * DERMATOPATHOLOGY (07/05/2023 3:33 AM MAIL SERVICE COORDINATOR) Case Report Dermatopathology Report ? Case: [id number] ? Authorizing Provider: ??Bakari Sanchez MD ?Collected: ? 07/05/2023 03:33 AM ? Ordering Location: ? [facility] ? Received: ?07/06/2023 03:46 PM ? Pathologist: ? Rosario Juarez MD ? Specimens: ?? A) - Skin, below left medial clvicle ? B) - Skin, left upper chest ? C) - Skin, posterior left shoulder ? 3 4:14 PM [facility] Final Diagnosis Specimen A. SKIN, below left medial clvicle: SOLAR LENTIGO (L81.4) Specimen B. SKIN, left upper chest: LICHEN PLANUS-LIKE KERATOSIS (BENIGN LICHENOID KERATOSIS) (L82.1) POST-INFLAMMATORY PIGMENT ALTERATION (L81.9) FOCAL ACANTHOLYTIC DERMATOSIS, CONSISTENT WITH (L11.1) (see microscopic description and comment) Specimen C. 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 The specimen consists of a shave biopsy measuring 7x6x1 mm. Jar 0. Specimen B: Received is one formalin filled container labeled with the patient's name and designated left upper chest. The specimen consists of a shave biopsy measuring 8x6x1 mm. Jar 0. Specimen C: Received is one formalin filled container labeled with the patient's name and designated posterior left shoulder. The specimen consists of a shave biopsy measuring [id number] mm. Jar 0. 3 4:14 PM [facility] Microscopic Description Specimen A. SKIN, below left medial clvicle: There is orthokeratosis. There is a slight increase in epidermal thickness with lentiginous buds of hyperpigmented keratinocytes. The number of melanocytes is only mildly increased. In the dermis, there is basophilic degeneration of elastic fibers. Specimen B. SKIN, left upper chest: The epidermis is mildly acanthotic. There is a focally lichenoid infiltrate with vacuolar changes of basilar keratinocytes and scattered necrotic keratinocytes as well as an area of epidermal attenuation, colloid bodies, and melanophages. Additionally, there is acantholysis, dyskeratosis, and an inflammatory cell infiltrate. Specimen C. SKIN, posterior left shoulder: There is central, broad epidermal invagination lined by epithelium with lobular cellular buds and spaces with an eosinophilic basement membrane. Additional deeper sections were obtained and reviewed. 3 4:14 PM [facility] Disclaimer An external and internal positive and negative controls are appropriate for the histochemical, immunohistochemical and immunofluorescence stain(s) in this case (if any), except where stated explicitly. The performance characteristics of the stain(s) cited in this report were developed and its performance characteristic determined by the Dermatopathology Laboratory at [facility], directed by Dr. Dmitriy Willoughby. These tests need not be, and therefore are not, approved by the [place] Food and Drug Administration. The tests are used for clinical purposes. Billing Codes Specimen Charges Stain Charges 10637 [id number] 1 1 1 3 4:14 PM MAIL SERVICE COORDINATOR DERMATOPATHOLOGY LABORATORY Embedded Images 3 4:14 PM MAIL SERVICE COORDINATOR DERMATOPATHOLOGY LABORATORY Pathology/Cytology TISSUE SPECIMEN FROM SKIN / Unknown 07/05/2023 3:33 AM MAIL SERVICE COORDINATOR 07/06/2023 3:46 PM MAIL SERVICE COORDINATOR Miscellaneous samples (specimen) TISSUE SPECIMEN FROM SKIN / Unknown 07/05/2023 3:33 AM MAIL SERVICE COORDINATOR 07/06/2023 3:46 PM MAIL SERVICE COORDINATOR Miscellaneous samples (specimen) TISSUE SPECIMEN FROM SKIN / Unknown 07/05/2023 3:33 AM MAIL SERVICE COORDINATOR 07/06/2023 3:46 PM MAIL SERVICE COORDINATOR Bakari Sanchez MD LAB - PATHOLOGY/CYTO LOGY ORDERABLES Performing Organization Address City/State/[facility] Co de Phone Number DERMATOPATHOLOGY LABORATORY [facility] - Department of Dermatology [address], [address] [phone] * CARDIAC RHYTHM STRIP ORDER (02/04/2011 9:56 AM CDT) Narrative Procedure Note Document, Scanned - 02/04/2011 9:56 AM CDT Scanned Document CARDIAC SERVICES ORD ERABLES * CARDIAC ECHOCARDIOGRAM COMPLETE ORDER (02/04/2011 9:56 AM CDT) Narrative Procedure Note Document, Scanned - 02/04/2011 9:56 AM CDT Scanned Document ECHO ORDERABLES * VASCULAR LAB ORDER (02/04/2011 9:56 AM CDT) Anatomical Region Laterality Modality Other Narrative Procedure Note Document, Scanned - 02/04/2011 9:56 AM CDT Scanned Document VASCULAR LAB ORDERAB LES
--- OUTSIDE RECORDS SUMMARY | 2024-08-09 15:54 | XMS_ITS | CONTINUITY OF CARE DOCUMENT ---
Author Name olindadarien olindadarien Address Unknown Organization [facility] Address [address] [place] [address] Phone [phone] Care Team Providers Care Research Director Name Role Phone Milton Arango MD Unavailable [phone] FERNANDA SCOTT, JOHN Unavailable JOHN MICHAEL MD Unavailable [phone] PROBLEMS Condition Status Date Provider Notes SYNCOPE active Milton Arango MD HEALTH SCREENING active Milton Arango MD ENCOUNTERS Date Type Provider Location Encounter Diag nosis - In-person encounter Office Visit [facility] HEALTH SCREENINGSYNC OPE VITAL SIGNS Date Observation Value Provider blood pressure, diastolic, left arm 79 mm [Hg] Yelena Coy blood pressure, systolic, left arm 115 mm [Hg] Yelena Coy blood pressure, diastolic, right arm 86 m m[Hg] Yelena Coy blood pressure, systolic, right arm 123 m m[Hg] Yelena Coy blood pressure, diastolic 79 mm[Hg] Moi Coy blood pressure, systolic 115 mm[Hg] Josue Coy pulse rate 84 /min Yelena Coy oxygen saturation, oximetry 98 % Yelena Coy respiratory rate E&M 16 /min Yelena Coy weight E&M 170 [lb_av] Yelena Coy ALLERGIES No Known Drug Allergies HISTORY OF MEDICATION USE Medication Status Instructions Dates Provider Indications Com ments LEXAPRO 20 MG ORAL TABLET active 1 tablet daily Elodia UMANZORGRA-D 12 HOUR 60-120 MG [id number] active 1 tablet twice daily as needed Yelena Coy NEXIUM 20 MG ORAL PACKET active every other day Yelena Coy SOCIAL HISTORY Date Observation Value Provider physical exercise, frequency, days per we ek yes [employer] caffeine use, average drinks per day yes [employer] alcohol use, average drinks per day socia l basis only [employer] number of years as a smoker less than 10 years [employer] smoking status Smoker [employer] MENTAL STATUS Date Observation Value Provider assessment of judgme nt and insight E&M Alert and oriented to time, place and person. Mood and affect are normal. Milton Arango MD INSURANCE PROVIDERS Payer name Policy type / Coverage type [place] [employer] [place] [facility] [id number] Other [id number] TREATMENT PLAN Date Name Performer new pt: O rders: E vent Recorder (*) C omplete Echo (CPT-52714) C arotid Duplex Bilateral (CPT-07606) T ilt Table Test (CPT-68389) Milton Arango MD Date Name Tilt Table Test Carotid Duplex Bilat eral Complete Echo Event Recorder HISTORY OF PROCEDURES Procedure Date Procedure Name Provider Procedure Notes S tatus EKG Milton Arango MD completed
--- OUTSIDE RECORDS SUMMARY | 2024-08-09 15:54 | XMS_ITS | Referral Summary ---
Author Organization [facility] Medical Office Building B Address [address] [place] [address] Care Team Providers Care Medical Records Assistant Name Role Phone Daniel Nevarez MD Primary Care Provider [phone] Yayo Nieto DPM Unavailable [phone] Encounters Date Type Department Care Team Description 07/26/2024 Orders Only [facility] [address] [phone] Daniel Nevarez MD 06/01/2024 Orders Only [facility] Operating Room [address] [place] [address] Yayo Nieto DPM 06/01/2024 1:30 PM RENDERER - 06/01/2024 3:00 PM RENDERER Surgery [facility] [address] [place] [address] Yayo Nieto DPM KOREY BUNIONECTOMY- WITH 3.0MM MIKE SCREW 06/01/2024 1:59 PM RENDERER Anesthesia Event [facility] [address] [place] [address] Chi Mason MD [place], Emenike Adolphus Jr., MD 06/01/2024 11:38 AM RENDERER - 06/01/2024 4:31 PM RENDERER Hospital Encounter [facility] [address] [place] [address] Yayo Nieto DPM Bunion of right foot Discharge Disposition: Discharge to home or self care from Last 3 Months Allergies No known active allergies Medications spironolactone (ALDACTONE) 100 mg tablet Take 1 tablet (100 mg total) by mouth daily Active cyanocobalamin (Vitamin B-12) 1,000 mcg/mL injection Inject 1 mL (1,000 mcg total) into the muscle as instructed Once a month Active valACYclovir (VALTREX) 500 mg tablet TAKE 1 TABLET BY MOUTH EVERY DAY 90 tablet Active SUMAtriptan (IMITREX) 100 mg tabletIndicati ons:Migraine Take 1 tablet (100 mg total) by mouth once as needed for migraine May repeat after 2 hours. 27 tablet 4 Active ammonium lactate (AMLACTIN) 12 % cream Apply topically as needed for dry skin Active testosterone, bulk, powder Bio Pellets every 3 months 0 Active Mounjaro 7.5 mg/0.5 mL pen injector INJECT 1 SYRINGE SUBCUTANEOUSLY ONCE A WEEK DIRECTED Active cephalexin (KEFLEX) 500 mg capsule Take 1 capsule (500 mg total) by mouth 3 (three) times a day 21 capsule Active oxyCODONE-acet aminophen (PERCOCET) 5-325 mg per tabletIndicati ons:Pain Take 1 tablet by mouth every 4 (four) hours as needed for pain 30 tablet Active omeprazole (PriLOSEC) 20 mg capsuleIndicat ions:Gastroeso phageal reflux disease without esophagitis TAKE 1 CAPSULE BY MOUTH EVERY DAY 100 capsule 1 Active escitalopram (LEXAPRO) 20 mg tablet TAKE 1 TABLET BY MOUTH EVERY DAY 100 tablet 1 Active lisdexamfetami ne (VYVANSE) 20 mg capsule Take 1 capsule (20 mg total) by mouth every morning 30 capsule Active omeprazole (PriLOSEC) 20 mg capsuleIndicat ions:Gastroeso [...] every morning 30 capsule 024 2024 Discontinued(R jorge) Active Problems Problem Noted Date Diagnosed Date [...] Colonoscopy utd Mammogram utd WWE utd with BATTERY CHARGER CONVEYOR LINE DM-annual visual examination and podiatry visits every [...] healthier, we can set up appointment with switchboard clerk/computer field technician. Have an active lifestyle, strive for 30 [...] man. Assessment & Plan (08/27/2021 1:38 PM RENDERER): 1. Eat a healthy diet: focus on lean meats and proteins, more fruits, vegetables and whole grains and low in sugars and fats. Limit red meat and avoid processed meat. 2. Maintain a healthy weight; avoid being overweight. Aim for a normal body mass index (BMI) of 18.5-24.9. Help learning to eat healthier, we can set up appointment with switchboard clerk/computer field technician. 3. Have an active lifestyle, strive for [...] & Plan (03/30/2022 10:43 AM CDT): 12/26/19 GX=912 HDL=35 LM=246 LDL=57 TC/HDL=4.8 NAXWQP=813 09/08/21 HG=734 HDL=32 CI=515 LDL=88 TC/HDL=5 YOTBQO=407 Has appt tomorrow for hormonal pellets; to have labs drawn. Will send results to us via [employer]. Reviewed diet/exercise recommendations. Assessment & Plan (08/27/2021 1:38 PM RENDERER): 12/26/19 NM=688 HDL=35 KS=874 LDL=57 TC/HDL=4.8 JNYMGL=084 Lipid panel ordered; will call w/results when received. Reviewed diet/exercise recommendations. Mild episode of recurrent major depressive disor khang 08/27/2021 Assessment & Plan (03/30/2022 10:25 AM CDT): escitalopram 20mg daily. Reports good control of depression w/current regimen. No changes to be made at this time. Reviewed med Ses & scheduling. Reviewed red flags. Assessment & Plan (08/27/2021 2:12 PM RENDERER): escitalopram 20mg daily. Reports good control of depression w/current regimen. No changes to be made at this time. Reviewed med Ses & scheduling. Reviewed red flags. Primary osteoarthritis of right hip 05/21/2021 Burning mouth syndrome 12/21/2019 Assessment & Plan (03/30/2022 10:38 AM CDT): Working w/dentist for treatment. They are discussing [facility]. Assessment & Plan (08/27/2021 2:14 PM RENDERER): Reviewed neg Sjogren ab 4 [address] Has seen Dr Patino. Discussed gingermints/josh tea, biotene products. Type 2 diabetes mellitus wit hout complication, without long-term current use of insulin ([facility]) 01/24/2019 Assessment & Plan (04/18/2024 [...] 07/01/2018 Assessment & Plan (08/03/2023 2:06 PM RENDERER): Neurovascularly intact. She will call pain management today for follow-up. Will E scribed Flexeril to take. Discussed the sedative affects so use with caution. Will monitor response. Elevated testosterone level in female 02/15/2018 Overview (02/15/2018): Managed by [facility] [facility] [place]. Lumbar facet arthropathy 09/04/2017 Trochanteric bursitis of both hips 09/04/2017 Assessment & Plan (09/04/2017 8:30 PM RENDERER): Chronic-injections done in January by Dr. Mora. Following up with him prn. Using hydrocodone prn. Attention deficit disorder 02/05/2015 Overview (08/30/2017): ADHD dx 6 yrs Assessment & Plan (04/18/2024 3:14 PM CDT): Well controlled on Vyvanse 20 mg. Tolerating without side effects. No changes. Will continue to monitor. Assessment & Plan (08/03/2023 2:07 PM RENDERER): Will down titrate to Vyvanse 20 mg [...] flags. Assessment & Plan (08/27/2021 2:10 PM RENDERER): [place] in the past 12 mos. Has not had filled since seeing Dr Jensen in 2018. Worsening focus/concentration w/increased stress running IMN [employer]. vyvanse 20mg daily filled. Aware to monitor weight/HR/BP. Reviewed medication side effects and scheduling. Reviewed red flags. Aware that she will need to be seen every 3 months. Assessment & Plan (09/04/2017 8:15 PM RENDERER): Well controlled with Vyvanse. Will continue with 20 mg daily. GERD (gastroesophageal reflux disease) 4 Overview (04/07/2022): GERD (gastroesophageal reflux disease) Assessment & Plan (09/04/2017 8:16 PM RENDERER): Well controlled with Nexium Migraine without aura and wi thout status migrainosus, not intractable 11/08/2012 Overview (10/21/2016): Migraines Assessment & Plan (08/03/2023 2:07 PM RENDERER): Chronic intermittent. Exacerbated with recent neck pain [...] 08/27/2021 Assessment & Plan (08/27/2021 1:39 PM RENDERER): Reviewed need to lose weight, reviewed health benefits. Reviewed recommendations for daily intake & activity 20-30 minutes/day. Influenza vaccine administered 08/27/2021 11/26/2021 Assessment & Plan (08/27/2021 1:39 PM RENDERER): Flu vaccine given today. Discussed possible tenderness/redness at injection site. Encounter for screening colonoscopy 05/28/2021 08/27/2021 Overview (05/28/2021): Added automatically from request for surgery [id number] Impingement syndrome of right shoulder 07/27/2019 08/27/2021 Overview (07/27/2019): Added automatically from request for surgery [id number] Arthritis of right acromioclavicular joint 07/27/2019 08/27/2021 Overview (07/27/2019): Added automatically from request for surgery [id number] Incomplete tear of right rotator cuff 07/27/2019 08/27/2021 Overview (07/27/2019): Added automatically from request for surgery [id number] Biceps tendinitis of right upper extremity 07/27/2019 08/27/2021 Overview (07/27/2019): Added automatically from request for surgery [id number] Chondromalacia of patella 06/30/2018 Injury, other and unspecifie d, knee, leg, ankle, and foot 06/30/2018 08/27/2021 Pre-diabetes 02/02/2018 03/30/2022 Mood disorder (CMS/HCC) 02/02/201808/18 Stomatitis and mucositis 02/02/201804/2022 Bilateral chronic knee pain 09/04/2017 08/27/2021 Assessment & Plan (09/04/2017 8:27 PM RENDERER): Saw Dr Mora, orthopedist in December 2016. X-rays indicated no significant arthritis noted. On Meloxicam. Using Hydrocodone prn. BMI 27.0-27.9,adult 09/04/2017 02/03/20 18 Assessment & Plan (09/04/2017 8:32 PM RENDERER): Obesity is increased by 10 lbs since January. . Discussed the patient's BMI. The BMI is above average; BMI management plan is completed. General weight loss/lifestyle modification strategies discussed (elicit support from others; identify saboteurs; non-food rewards, etc). Mammogram abnormal 08/18/2016 8 Immunizations Name Administration Dates Next Due Influenza, [...] Pcv20 03/30/2022(Deferred : Patient Refused) Tdap 07/18/2004 Social History Tobacco Use Types Packs/Day Years [...] often do you attend chur ch or latter-day services? 1 to 4 times per year 03/22/2023 Do you belong to any clubs o r organizations such as caodaism groups, unions, fraternal or athletic groups, or [...] staff should administer the PHQ-9) 0 01/12/2024 [facility] - Occupational [...] place to sleep or slept in a nursing home (including now)? No 03/22/2023 Personal Safety Answer Date Recorded Have you ever been in or are you currently in a harmful physical or emotional relationship or is someone making you feel afraid or unsafe? 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 Not on file Not on file Last Filed Vital Signs Vital Sign Reading Time Taken Comments Blood Pressure 117/72 06/01/2024 4:25 PM RENDERER Pulse 67 06/01/2024 4:25 PM RENDERER Temperature 36.4 ??C (97.6 ??F) 06/01/2024 4:25 PM CS T Respiratory Rate 20 06/01/2024 4:25 PM RENDERER Oxygen Saturation 99% 06/01/2024 4:25 PM RENDERER Inhaled Oxygen Concentration - - Weight 74.9 kg (165 lb 2 oz) 06/01/2024 11:50 AM RENDERER Height 170.2 cm (5' 7 ) 06/01/2024 11:50 AM RENDERER Body Mass Index 25.86 06/01/2024 11:50 AM RENDERER Plan of Treatment Not on file Goals Goal Patient Goal Type Associated Problems Recent Progress Patient-Stated? Author CCM Chronic Pain Care Plan Chronic Care Management No Daily Sanders, RN Note: Problem: Chronic Pain Goals: 1. Minimize further functional decline 2. Maximize quality of life 3. Control pain Strategies: - Activity/exercise program recommendation - Conservative stepwise pain medicine strategy with multi-disciplinary approach - Recommend healthy lifestyle strategies and compensatory methods as needed Reduce the likelihood of falling Lifestyle No Daily Sanders RN Note: Below are four things you can [...] home safety. Medical Devices Implanted Type Area Organ Pipe Voicer Device Identifier Shelf Expiration Date Model / Serial / Lot [employer]/Or tho 4565 Implant Medium Arthroscopic Bioinductive W/ Delivery Device - [id number] Implanted:Qty: 1 on 08/09/2019 by Kareem Omledo MD at [facility] Right: Shoulder [employer]/Or tho 02/22/2022 4565 / / [id number] [employer] 2504-1 Regenerate Tendon [place] Suture - [id number] Implanted:Qty: 1 on 08/09/2019 by Kareem Olmedo MD at [facility] Right: Shoulder [employer] 12/23/2019 2504-1 / / [id number] Bone Anchors Implanted:Qty: 1 on 08/09/2019 by Kareem Olmedo MD at [facility] Right: Shoulder [employer] [id number] 03/10/2022 4403 / / [id number] [employer] Asnis 3mm 22mm 5mm Self Cut Cannulated Color Coded Low Profile [id number] - [id number] Implanted:Qty: 1 on 06/01/2024 by Yayo Nieto DPM at [facility] Right: Foot [employer] [id number] / / Procedures Procedure Name Priority Date/Time Associated Diagnosis Comments XR FOOT RIGHT 2 VIEWS IP Routine 06/01/2024 3:47 PM RENDERER Bunion of right foot FL FLUOROSCOPY < 1 HOUR IP Routine 06/01/2024 3:47 PM RENDERER Bunion of right foot AR AN ELECTIVE SUPRAGLOTTIC AIRWAY Routine 06/01/2024 2:13 PM RENDERER BUNIONECTOMY/HAMMERT OE REPAIR/OSTEOTOMY 06/01/2024 1:44 PM RENDERER HALLUX ABDUCTO VALGUS RIGHT FOOT ANESTHESIA PERIPHERAL BLOCK Routine 06/01/2024 12:45 PM RENDERER POTASSIUM, WHOLE BLOOD STAT 06/01/2024 12:08 PM RENDERER POCT GLUCOSE DEVICE Routine 06/01/2024 1 2:07 PM RENDERER SURGICAL PATHOLOGY Routine 06/01/2024 11 :01 AM RENDERER EGFR Routine 04/16/2024 1:31 PM CDT Type 2 diabetes mellitus without complication, without long-term current use of insulin (CMS/HCC) ([facility]) Lipid screening LIPID PANEL Routine 04/16/2024 1:31 PM CDT Type 2 diabetes mellitus without complication, without long-term current use of insulin (CMS/HCC) ([facility]) Lipid screening HEMOGLOBIN A1C Routine 01/10/2024 10:52 AM CDT Type 2 diabetes mellitus without complication, without long-term current use of insulin (CMS/HCC) ([facility]) ALBUMIN CREATININE RATIO, URINE Routine [...] for viral disease COLONOSCOPY 09/17/2021 9:55 AM RENDERER DIABETIC EYE EXAM Routine 06/26/2021 HM PAP SMEAR WITH HPV Routine 05/01/2017 from Last 3 Months or Most Recently Relevant to Health Maintenance Results * FL Fluoroscopy < 1 Hour (06/01/2024 3:47 PM RENDERER) Narrative [facility] - 06/01/2024 3:47 PM RENDERER The images from this study are not interpreted by Radiology. ??Please refer to the physician's procedure / OR operative note. Yayo Nieto DPM IMG FLUOROSCOPY PROCEDURES Final Result [facility] * XR Foot Right 2 Views (06/01/2024 3:47 PM RENDERER) Anatomical Region Laterality Modality Lower Extremities, Foot Right Radio Fl uoroscopy 06/03/2024 5:35 PM RENDERER Narrative 06/03/2024 5:36 PM RENDERER EXAM DESCRIPTION: XR FOOT RIGHT 2 VIEWS [...] PM T: ??06/03/2024 5:36 PM Report ID: [id number] Reading Location: ??[id number] Procedure Note aNwaf Gutierrez MD - 06/03/2024 EXAM DESCRIPTION: XR [...] Nawaf Gutierrez M.D. MF: GUNNAR Report ID: [id number] Reading Location: [id number] Yayo Nieto DPM IMG XR PROCEDURES Final Re sult * AR AN ELECTIVE SUPRAGLOTTIC AIRWAY (06/01/2024 2:13 PM RENDERER) Narrative Elliot Mendez CRNA - 06/01/2024 2:13 PM RENDERER Elliot Mendez CRNA ? 06/01/2024 ??2:13 PM [...] Atraumatic LMA placement. No GERD sx today. Result [facility] Chi Mason MD ANESTHESIA ORDERABLES Final Result * Peripheral Block (06/01/2024 12:45 PM RENDERER) Narrative Chi Mason MD - 06/01/2024 12:45 PM RENDERER Chi Mason MD ? 06/01/2024 12:45 PM [...] patient tolerated procedure well with no complications Chi Mason MD ANESTHESIA ORDERABLES Final Result * Potassium, whole blood (06/01/2024 12:08 PM RENDERER) Potassium, bld 3.7 3.3 - 4.9 mmol/L Comment: Interpretive Data This method is not able to assess for hemolysis, which may falsely increase potassium concentrations. If further testing is needed to evaluate this result, consider in-laboratory plasma potassium. Current Interpretive Data was last revised on 2022. Blood 06/01/2024 12:0 8 PM RENDERER 06/01/2024 12:13 PM RENDERER us Chi Mason MD LAB BLOOD ORDERABLES F inal Result Performing Organization Address City/[facility]/ZIP Co de Phone Number JESSE GOMEZ ([place]) [address] [place] [address] * POCT glucose (06/01/2024 12:07 PM RENDERER) Glucose, POC 93 70 - 199 mg/dL Blood 06/01/2024 12:0 7 PM RENDERER 06/01/2024 12:07 PM RENDERER us Yayo Nieto DP LAB POCT ORDERABLES - DUANE CE Final Result Performing Organization Address [facility] de Phone Number JESSE GOMEZ ([place]) [address] [place] [address] Department [place] [address] * Surgical pathology (06/01/2024 11:01 AM RENDERER) Bone Fragment(s), 06/01/2024 11:01 AM RENDERER 06/04/2024 11:01 AM RENDERER Narrative 06/06/2024 4:27 PM RENDERER EPIC results best viewed via link to PDF [facility] Department of Pathology [address] [place] [id number] Note to Patients: This report may contain [...] the details. Final Report Patient Name: ??SANDER SOLNAO Address: ??[address] [place] [address], ??[place], [place] ??[address] Gender: ??F : ??1970 (Age: 53) Service: ??Surgery Location: ??[facility] #: ??[id number] Patient Type: ??[facility] Accession # ?[id number] Taken: ??06/01/2024 Received: ??06/04/2024 Accessioned: ??06/04/2024 Reported: [...] foot. ??Korey bunionectomy - with 3.0 mm Mike screw. ?? Gross Description: Received in a [...] determined by the Surgical Pathology Department at [facility] [place] as part of an ongoing quality control checker program and in compliance with federally mandated [...] characteristics determined by the Surgical Pathology Department [facility]. ??It has not been cleared or approved by the U. S. Food and Drug Administration. Note for decalcified specimens: This assay has not been validated on decalcified tissues. Results should be interpreted with caution given the possibility of false negativity on decalcified specimens Yayo Nieto DPM LAB PATHOLOGY ORDERABLES F inal Result * [...] 04/16/2024 6:02 PM CDT us Luisa Llanes IT ADMINISTRATOR LAB BLOOD ORDERABLES Final Result Performing Organization Address City/State/ZIP Co co Phone Number JESSE SANTOS [address] [address] Department [place] [address] * Lipid panel (04/16/2024 1:31 PM CDT) [...] on 2018. Triglycerides 121 <=149 mg/dL JESSE SANTOS Comment: Interpretive Data Ages < or = [...] on 2018. HDL 40 >=40 mg/dL JESSE SANTOS Comment: Interpretive Data Ages < or = [...] 2018. LDL, calculated 105 <=129 mg/dL JESSE SANTOS Comment: Interpretive Data Ages < or = [...] NCEP Expert Panel. Circulation 2004;110:227 3. Keyon Molina et al. MARILEE Cardiol. 2020 November 15;5(5):540-548. doi: 10.1001/jamacardio.2020.0013 Current Interpretive Data was last revised on 2024. Non-HDL Cholesterol 127 mg/dL CERNER CH Comment: Interpretive Data Ages < or = [...] CDT 04/16/2024 6:00 PM CDT Luisa Llanes IT ADMINISTRATOR LAB BLOOD ORDERABLES Final Result CHRISTOPHJESSICA [id number] [facility] Department [place] [address] * Albumin Creatinine Ratio, Urine (01/10/2024 10:52 AM CDT) Albumin Ur <12.0 mg/L Comment: Interpretive Data No reference range established. Current interpretive data was last revised 2018. Testing performed by: [address] [address] Creatinine Ur 14.7 mg/dL JESSE GOMEZ ([place]) Comment: Interpretive Data No reference range established. Current interpretive data was last revised 2018. Testing performed by: [address] [address] Albumin Creatinine Ratio, Ur See Comment 1 - 29 JESSE GOMEZ ([place]) Comment: Unable to calculate Testing performed by: [address] [address] Urine 01/10/2024 10:5 2 AM CDT 01/10/2024 12:36 PM CDT Luisa Llanes NP LAB URINE ORDERABLES Final Result Performing Organization Address [facility] Co de Phone Number JESSE GOMEZ ([place]) [address] [facility] [place] [address] * Hemoglobin A1c (01/10/2024 10:52 AM CDT) Hgb A1C 5.2 4.0 - 5.6 % Comment:Testing performed by : [facility] [place], [address] [place] [address]., [id number] Estimated Average Glucose 103 mg/dL JESSE GOMEZ ([place]) Comment: The ADA recommends reporting an estimated Average Glucose (eAG) with all Hemoglobin A1c results using the equation derived from a study of 507 normal and diabetic adults. ??Minority populations were underrepresented and children were not included. ?? (Diabetes Care 31:0101-7856, 2008). ??The eAG is not equivalent to a fasting glucose. Testing performed by: [facility] [place], [address] [place] [address]., [address] Blood 01/10/2024 10:5 2 AM CDT 01/10/2024 12:36 PM CDT Luisa Llanes NP LAB BLOOD ORDERABLES Final Result Performing Organization Address [facility] de Phone Number JESSE GOMEZ ([place]) [address] [place] [address] * Screening Mammogram Bilateral W Amrik W [...] There has been no suspicious interval change. us Self Screening Mammogram IMG MAMMO PROCEDURES Fi [...] last revised on 2019. Testing performed by: [facility] [place], [address] [place] [address]., [id number] Blood 03/31/2023 7:33 AM CDT 03/31/2023 11:06 AM CDT Karla Hau MD LAB MICROBIOLOGY - GENE RAL ORDERABLES Final Result JESSE GOMEZ ([place]) 1 [facility] Department [place] [address] * COLONOSCOPY (09/17/2021 9:55 AM RENDERER) Anatomical Region Laterality Modality Other Narrative Procedure Note Jose Mccauley MD - 09/17/2021 9:55 AM CST [facility] Patient Name: Sander Solano Procedure Date: 09/17/2021 9:55 AM Date of : 1970 Admit Type: Outpatient Age: 51 Gender: Female Attending MD: Jose Mccauley M.D. Room: [facility] ENDOSCOPY ROOM 2 Note Status: Finalized Patient [...] scope was passed under direct vision. TheColonoscope [id number] was introduced through the anus and advanced [...] malignant neoplasm of colon CPT copyright 2020 [employer]. All rights reserved. The codes documented in this report are preliminary and upon decker operator reviewmay be revised to meet current compliance requirements. Recognized by the [employer] for promoting quality in endoscopy us Jose Mccauley MD ENDOSCOPY PROCEDURES Final Re sult * (ABNORMAL) Diabetic Eye Exam (06/26/2021) us Historical Provider HEALTH MAINTENANCE Final Result * PAP SMEAR WITH HPV (05/01/2017) HM Pap smear Normal us Historical Provider HEALTH MAINTENANCE Final Result from Last 3 Months or Most Recently Relevant to Health Maintenance Insurance [facility] PL[facility] HMO/PPO Address: [address] [place] [address] [facility] PL[facility] HMO/PPO Address: [address] [address] [place] [address] [facility] PLUS [facility] HMO/PPO Address: [place] [address] Advance Directives For more information, please contact: [phone] * Full Code (Latest Code Status on File) Date Activated Date Inactivated Comments 09/17/2021 10:12 AM 09/17/2021 4:23 PM * Full Code Date Activated Date Inactivated Comments 09/17/2021 10:12 AM 09/17/2021 10:12 AM Care Teams Medical Records Assistant Relationship Specialty Start Date End Date Daniel Nevarez MD [address] [place] [address] PCP - General Family Medicine 12/20/19 Yayo Nieto DPM [address] [place] [address] Consulting Physician Orthotics 06/01/24
--- OUTSIDE RECORDS SUMMARY | 2024-08-09 15:54 | XMS_ITS | Clinical Summary ---
Author Organization [facility] Address [address], [facility] [address] [place] [address] Phone Care Team Providers Care Landing Scaler Name Role Phone Austin Sterling NP Primary Care Provider Unavaila ble Allergies No known active allergies Medications escitalopram (LEXAPRO) 20 MG Tablet Take 20 mg by mouth daily. 0 11/12/2018 Active esomeprazole (NEXIUM) 40 MG CAPSULE DELAYED RELEASE Take 40 mg by mouth daily. Active metFORMIN (GLUCOPHAGE-XR) 500 MG TABLET SR 24 HR Take 1,000 mg by mouth daily. 05/25/2017 Active spironolactone (ALDACTONE) 100 MG Tablet Take 100 mg by mouth daily. 3 12/29/2018 Active Varenicline Tartrate (CHANTIX PO) Take by mouth daily. Active DULoxetine (CYMBALTA) [address] Particles Take 60 mg by mouth daily. 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 Mouth pain 01/24/2019 Diabetes mellitus 01/24/2019 GERD (gastroesophageal reflux disease) 9 Laryngopharyngeal reflux 01/24/2019 Tobacco abuse 01/24/2019 Family History Medical History Relation Name Comments Diabetes Son Relation Name Status Comments Father Alive Mother Son Social History Tobacco Use Types Packs/Day Years Used Date Smoking Tobacco: Every Day Cigarettes 0.5 20 Smokeless Tobacco: Never Alcohol Use Standard Drinks/Week Comments Yes 5 (1 standard drink = 0.6 oz pur e alcohol) social Comments Unknown Sex and Gender Information Value Date Recorded Sex Assigned at Not on file Legal Sex Female 11:40 PM CDT Gender Identity Not on file Sexual Orientation Not on file 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 Not on file Not on file Not on file Last Filed Vital Signs Vital Sign Reading Time Taken Comments Blood Pressure 118/88 03/07/2019 12:16 PM CDT Pulse 68 03/07/2019 12:16 PM CDT Temperature 36 ??C (96.8 ??F) 03/07/2019 12:16 PM CDT Respiratory Rate 16 03/07/2019 12:16 PM CDT Oxygen Saturation 100% 03/07/2019 12:16 PM CDT Inhaled Oxygen Concentration - - Weight 72.6 kg (160 lb) 02/14/2019 1:00 PM CDT Height 170.2 cm (5' 7 ) 02/14/2019 1:00 PM CDT Body Mass Index 25.06 02/14/2019 1:00 PM CDT Plan of Treatment Health Maintenance Due Date Last Done Comments Diabetes: Eye Exam 1970 Diabetes: Foot Exam 1970 Diabetes: Hemoglobin A1c 1970 Hepatitis C Virus (HCV) Screening 1970 TdaP Immunization 1970 Diabetes: Nephropathy Screening 1988 Hepatitis B Immunization (1 of 3 - 19+ 3-dose series) 1989 Pneumococcal Immunization (5 0+ years) (1 of 2 - PCV) 1989 Colonoscopy 2015 Colorectal Cancer Screening 2015 Cologuard 2020 Immunochemical Fecal Occult Blood 2020 Mammogram 2020 Zoster Immunization (1 of 2) 2020 Influenza Immunization (#1) 2024 08/06/2020 SARS-COV-2 Immunization (2 - 2023- season) 2024 10/23/2020 Respiratory Syncytial Virus (RSV) Immunization (Adult) (1 - 1-dose 75+ series) 2045 Meningococcal Immunization (ACWY) Aged Out No longer eligible based on patient's age to complete this topic Rotavirus Immunization Aged Out No lo nger eligible based on patient's age to complete this topic Care Teams Landing Scaler Relationship Specialty Start Date End Date Austin Sterling NP PCP - General Family Medicine 01/24/19
--- OUTSIDE RECORDS SUMMARY | 2024-08-09 15:54 | XMS_ITS | Encounter Summary ---
Author Organization [facility] Address [address] [facility] [place] [address] Care Team Providers Care Band Aid Machine Operator Name Role Phone Unavailable Primary Care Provider Unavailabl e Encounter Details Date Type Department Care Team (Late st Contact Info) Description 07/06/2023 Lab Requisition [facility] [address] [facility] [place] [id number] Bakari Sanchez MD [address] [place] [address] Social History Tobacco Use Types Packs/Day Years Used Date Smoking Tobacco: Never Assessed Sex and Gender Information Value Date Recorded Sex Assigned at Not on file Gender Identity Not on file Sexual Orientation Not on file documented as of this encounter Plan of Treatment Not on file documented as of this encounter Procedures Procedure Name Priority Date/Time Associated Diagnosis Comments DERMATOPATHOLOGY Routine 07/05/2023 3:33 AM NUCLEAR SPECTROSCOPIST documented in this encounter Results * DERMATOPATHOLOGY (07/05/2023 3:33 AM NUCLEAR SPECTROSCOPIST) Case Report Dermatopathology Report ? Case: [id number] ? Authorizing Provider: ??Bakari Sanchez MD ?Collected: ? 07/05/2023 03:33 AM ? Ordering Location: ? [facility] ? Received: ?07/06/2023 03:46 PM ? Pathologist: ? Rosario Juarez MD ? Specimens: ?? A) - Skin, below left medial clvicle ? B) - Skin, left upper chest ? C) - Skin, posterior left shoulder ? 3 4:14 PM NUCLEAR SPECTROSCOPIST DERMATOPATHOLOGY LABORATORY Final Diagnosis Specimen A. SKIN, below left medial clvicle: SOLAR LENTIGO (L81.4) Specimen B. SKIN, left upper chest: LICHEN PLANUS-LIKE KERATOSIS (BENIGN LICHENOID KERATOSIS) (L82.1) POST-INFLAMMATORY PIGMENT ALTERATION (L81.9) FOCAL ACANTHOLYTIC DERMATOSIS, CONSISTENT WITH (L11.1) (see microscopic description and comment) Specimen C. 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 Jar 0. 3 4:14 PM [facility] DERMATOPATHOLOGY [facility]OR[facility]ORY Microscopic Description Specimen A. SKIN, [...] were obtained and reviewed. 3 4:14 PM [facility] DERMATOPATHOLOGY [facility]ORATORY Disclaimer An external and internal positive and negative controls are appropriate for the histochemical, immunohistochemical and immunofluorescence stain(s) in this case (if any), except where stated explicitly. The performance characteristics of the stain(s) cited in this report were developed and its performance characteristic determined by the Dermatopathology Laboratory at [facility], directed by Dr. Dmitriy Willoughby. These tests need not be, and therefore are not, approved by the [place] Food and Drug Administration. The tests are used for clinical purposes. Billing Codes Specimen Charges Stain Charges 36972 [id number] 1 1 1 3 4:14 PM [facility] DERMATOPATHOLOGY [facility]ORATORY Embedded Images 3 4:14 PM NUCLEAR SPECTROSCOPIST DERMATOPATHOLOGY LABORATORY Pathology/Cytology TISSUE SPECIMEN FROM SKIN / Unknown 07/05/2023 3:33 AM NUCLEAR SPECTROSCOPIST 07/06/2023 3:46 PM NUCLEAR SPECTROSCOPIST Miscellaneous samples (specimen) TISSUE SPECIMEN FROM SKIN / Unknown 07/05/2023 3:33 AM NUCLEAR SPECTROSCOPIST 07/06/2023 3:46 PM NUCLEAR SPECTROSCOPIST Miscellaneous samples (specimen) TISSUE SPECIMEN FROM SKIN / Unknown 07/05/2023 3:33 AM NUCLEAR SPECTROSCOPIST 07/06/2023 3:46 PM NUCLEAR SPECTROSCOPIST Bakari Sanchez MD LAB - PATHOLOGY/CYTO LOGY ORDERABLES DERMATOPATHOLOGY LABORATORY [facility] - Department of Dermatology [facility] Medicine [address] [place] [address], [address] [phone] documented in this encounter Visit Diagnoses Not on filedocumented in this encounter
--- OUTSIDE RECORDS SUMMARY | 2024-08-09 15:54 | XMS_ITS | Continuity of Care Document ---
Author Organization [facility] Address [address] [place] [address] [place] [phone] Phone Care Team Providers Care Content Coordinator Name Role Phone Lawrence Garcia DPM Unavailable Unavailable Procedures Procedure Date Medical Record Copy Medical Record Copy Per Page Special Narrative Report Erik 13 Work/Medical Disability Exam RJR 2012 Work/Medical Disability Exam RJR 2011 Advance Directives Directive Yes / No Effective Date File Name No Information Encounters Encounter Description Practice Location Reason(s) For Visit Diagnoses Date Provider Providers Copied on Encounter [facility], [address] [place] [address], [address] [place] [address], tel:[phone] [facility] No Information 3 Jose Bravo. [address] [place] [address], [id number], [place]. tel:[phone] [facility], [address] [place] [address], [id number], [place] tel:[phone] [facility] No Information 3 Administrati ve Provider. [address] [place] [address], [id number], [place]. tel:[phone] Referring Provider: Eran Doyle, [address] [place] [address], [id number] . tel:[phone] [facility], [address] [place] [address], [place], [place], [id number], tel:[phone] [facility] No Information 3 Administrati ve Provider. [address] [place] [address], [place] [address], [place], [place], [id number], . tel:[phone] Referring Provider: Eran Doyle, [address] [place] [address], [place], [place], [address] [place] [address] . tel:[phone] [facility], [address] [place] [address], [place], [place], [address] [place] [address], tel:[phone] [facility] CHONDROMALACIA PATELLAE 3 Administrati ve Provider. [address] [place] [address], [place], [place], [address] [place] [address], . tel:[phone] Referring Provider: Eran Doyle, [address] [place] [address], [place], [place], [address] [place] [address] . tel:[phone] [facility], [address] [place] [address], [place], [place], [id number], tel:[phone] [facility] LOWER LEG INJURY NOS 2 Administrati ve Provider. [address] [place] [address], [place], [place], [address] [place] [address], . tel:[phone] Referring Provider: Eran Doyle, [address] [place] [address], [place], [place], [address] [place] [address] . tel:[phone] Family History Family Member Type Diagnosis Age At Onset No Information Payers Payer name Insurance type Covered republican ID Authoriza tion(s) No Information Social History Type Description Quantity Date Captured Comments Sex Female Smoking Status No Information Chief Complaint And Reason For Visit No Information Reason For Referral Reason For Referral No Information History Of Present Illness Encounter Date Complaint History Of Prese nt Illness No Information Functional Status Date Functional Assessmen t No Information Instructions Date Instruction Additional Infor mation No Information Assessments Type Assessment Date No Information Patient Care Teams Name Effective Dates (start - stop) Status Members No Information
--- OUTSIDE RECORDS SUMMARY | 2024-08-09 15:54 | XMS_ITS | Clinical Summary ---
Author Organization [facility] Address [address] [place] [address] Care Team Providers Care Feed Mixer Helper Name Role Phone Unavailable Primary Care Provider Unavailabl e Source Comments [facility],non-owned Affiliates and Associated Physician Practices is amultiple site organization consisting of ambulatory clinics and hospital sitesin [place], [place], [place] and [place]. This disclosure is being madepursuant to the Care Everywhere program and may not contain all information available regarding this patient. Last updated 18.[facility] Allergies No known active allergies Medications * [...] 02/01/2011 9:33 AM CDT Plan of Treatment Health Maintenance Due Date Last Done Comments COLOGUARD (AGES 45-75) - COL ON CA SCREENING 1970 COLON MONITORING 1970 COLONOSCOPY - COLON CA SCREENING 1970 CT COLONOGRAPHY - COLON CA SCREENING 1970 Colorectal Cancer Screening 1970 FIT - COLON CA SCREENING 1970 FLEX SIG - COLON CA SCREENING 1970 LIPID TESTING 1970 MAMMOGRAM 1970 PAP SMEAR 1970 HIV SCREENING 1985 HEPATITIS C SCREENING 07/04/1988 DTAP/TDAP/TD VACCINES (1 - Tdap) 1989 HEPATITIS B VACCINE (1 of 3 - 19+ 3-dose series) 1989 PNEUMOCOCCAL VACCINE 50+ (1 of 1 - PCV) 2020 ZOSTER VACCINE (1 of 2) 2020 COVID-19 VACCINE (1 - 2023-2 5 season) 2024 INFLUENZA VACCINE (#1) 2024 DEPRESSION SCREENING 07/18/2024 HIB VACCINE Aged Out No longer eligi ble based on patient's age to complete this topic HPV VACCINE Aged Out No longer eligi ble based on patient's age to complete this topic MENINGOCOCCAL (Group B) VACCINE Aged Out No longer eligible based on patient's age to complete this topic MENINGOCOCCAL VACCINE Aged Out No esther willard eligible based on patient's age to complete this topic PNEUMOCOCCAL VACCINE Aged Out No long er eligible based on patient's age to complete this topic
== END 2024-08-07 08:00 | disposition home or self-care (01) ==
LOC: ANHBWCLAB 08:05
PROVIDERS: Visit Provider Anesthesiology
DX: Z01.818 Encounter for other preprocedural examination (principal); T50.2X5A Adverse effect of carbonic-anhydrase inhibitors, benzothiadiazides and other diuretics, initial encounter
CPT/HCPCS: 36415; 80048

== ENCOUNTER 2024-08-08 06:02 | Day surgery (SDC) | payer OTHER, SELFPAY ==
[2024-07-20 12:29] VITALS: BMI 26.9
[2024-08-08] VITALS (10 sets, daily range): BP systolic 105–128; BP diastolic 54–75; PULSE 76–96; RESP 13–15; TEMP 36.2–36.8; O2SAT 96–100
[2024-08-08] MEDS: LACTATED RINGERS 1,000 ML 30 ML IV CONT ×3 (07:18→11:31)
--- NOTE | 2024-08-08 07:51 | WPDANESEPPF ---
Anes - Initial Pre Proc Eval Procedure: Operation Date: 08/08/24 08:30 Proposed Procedures p Bilateral Breast Implant Exchange - Romero Saini MD s Bilateral Breast Mastopexy - Romero Saini MD Date/Time: 08/08/24 07:51 Surgeon: Romero Saini MD Pre Op Diagnosis: HX Breast Augmentation and Breast Ptosis Patient Data Age: 54 Gender: F Height: 1.7 m Weight: 77.6 kg Last Vital Signs Temp 36.8 C 08/08/24 07:07 Pulse 78 08/08/24 07:07 Resp 15 08/08/24 07:07 BP 118/75 08/08/24 07:07 Pulse Ox 98 08/08/24 07:07 O2 Del Method Room Air 08/08/24 07:07 Allergies Allergy/AdvReac Type Severity Reaction Status Date / Time No Known Allergies Allergy Verified 08/08/24 07:06 Home Medications ?Medication ?Instructions ?Recorded ?Confirmed ?Type escitalopram oxalate 20 mg tablet 20 mg PO DAILY 06/10/19 08/08/24 History (Lexapro) omeprazole 20 mg tablet,delayed 20 mg PO DAILY 06/10/19 08/08/24 History release spironolactone 100 mg tablet 100 mg PO DAILY 06/10/19 08/08/24 History lisdexamfetamine 20 mg capsule 20 mg PO DAILY 07/20/24 08/08/24 History Patient hx anesthesia problems: none Family hx anesthesia problems: none Results Review: All pre-operative results and documents have been reviewed as part of the pre-operative evaluation. [facility] Past Medical History Medical History (Updated 08/08/24 @ 07:51 by Art Harris MD) Overweight Surgical History Surgical History (Updated 08/08/24 @ 07:52 by Art Harris MD) H/O breast augmentation Social History Social History Smoking packs per day: 0.5 Smoking cigarettes per day: 10.0 Years smoked: 20 Smoking pack-years: 10.00 Smoking status: Former smoker Tobacco type: cigarettes and e-cigarettes/vaping Smoking end date: 04/17/24 Alcohol intake: current Drinks per week: 8 Substance use: never Substance use type: does not use Living arrangements: with family Spiritual care concerns: No Anes - Eval Final PreProcedure Day of Procedure 08/08/24 07:51 Patient weight: overweight Heart: regular rate and rhythm Lungs: clear to auscultation Airway: Mallampati scale class II Neurological: alert and oriented Last oral intake: >/= 8 hours ASA classification: II Emergent: no Anesthetic plan: proceed Anesthesia type and monitoring: general LMA and standard monitoring Results Review: All pre-operative results and documents have been reviewed as part of the pre-operative evaluation. Informed Consent: The patient's anesthetic plan and its attendant risks and benefits were discussed with the patient/family/POA. Questions were solicited and answers provided to the satisfaction of the patient/family/POA.
--- NOTE | 2024-08-08 07:56 | WPDHPUPDATE1 ---
History and Physical Update Update Date/Time: 08/08/24 07:56 History and Physical has been reviewed, including an updated exam of the patient. There are NO changes in the patient's condition. Risks, benefits, and alternatives have been discussed and questions answered. Patient agrees to proceed with procedure.
--- NOTE | 2024-08-08 08:12 | W.PM.PROC2 ---
Procedure Note - Detailed Date of Procedure 08/08/24 Pre-op Diagnosis HX Breast Augmentation and Breast Ptosis Post-op Diagnosis Same Procedure Performed Bilateral revision mastopexy with implant exchange Surgeon Romero Saini MD Anesthesia General Findings Bilateral inverted t, superior pedicle mastopexy Previous implants: Right - REF# [id number] smooth silicone - ruptured Left - REF# [id number] smooth silicone - intact New implants: Bilateral Roxanne Hyde SoftTouch 385cc Right -REF# [id number] SN [id number] Left -REF# [id number] SN [id number] Description of Procedure She is here today for the above. Previously and again today the risks, benefits, alternatives were discussed in extensive detail. I wanted her to be very realistic about the risks involved as well as expectations. She understands revisionary surgery increases risk of complications / complexity. Again discussed implant sizing. We discussed aftercare and what to monitor for. Made sure answered all of her questions to her satisfaction today and consent was obtained. Marked in the preoperative holding area with their verification. The patient was taken to the operating room placed supine on the operating table. Anesthesia was provided by anesthesiology. She was prepped and draped in a standard sterile fashion. Tegaderm nipple Hussein were placed. Stab incisions were made along the IMF and tumescent was infiltrated laterally. A 15 blade used to make an incision just superior to the inframammary fold leaving a cusp of de-epithelized tissue at the t junction. Dissection was continued until previous implants identified. Findings as above. Removed with suction on catheter tip syringes. I then copiously irrigated with 3L of saline on TUR tubing. Verified a string hemostasis. Changed gloves / instruments. Lateral popcorn capsulorraphy completed bilateral. I then copiously irrigated with saline solution and verified a strict hemostasis. Next the use a triple antibiotic and Betadine containing solution to irrigate the pocket. I washed my gloves with the triple antibiotic and Betadine solution. We washed the implant immediately upon opening it with this solution and only opened it when we needed it. I used implant funnel and no-touch technique. The implant was introduced into the pocket using the funnel. Having verified positioning of the implant this was closed using 2-0 PDS. I tailor tacked the breast into position. Placed her in a sitting position. Verified the nipple-areolar location based on preoperative planning as well as intraoperative observations and measurements in full agreement. Suction lipectomy completed bilateral lateral breast for contour with 4mm Nancy cannula based on preoperative planning, intraoperative observation, and rolling pinch which were in full agreement. She was placed supine. I de-epithelialized the pedicle. I then removed the inferior central portion of the breast need making sure the implant was well protected. I elevated medial and lateral tissue flaps as well for planned closure. I closed along the IMF with 2-0 Stratafix. Along the vertical with 2-0 PDS. I closed around the areola with 3-0 strata fix. 3-0 Monocryl along the vertical. 3-0 Stratafix along the IMF. I finally closed everything with running subcuticular 4-0 Monocryl and tissue glue. Fluffs and surgical bra were placed. Estimated Blood Loss 40 Drains No Packing No Pathology None sent Complications No immediate complications Condition Stable Disposition PACU
[2024-08-08] MEDS: ceFAZolin SODIUM 2 GM/20 ML SW SYRINGE IV PUSH (08:17)
[2024-08-08] MEDS: TRANEXAMIC ACID 1,000 MG/10 ML AMPUL 1000 MG IV PUSH (08:25)
[2024-08-08] MEDS: LACTATED RINGERS IRRIG 1,000 ML, LIDOCAINE 1% LOCAL INJ 50 ML, EPINEPHrine HCL INJ 1 MG... INFILTRATE (08:57)
[2024-08-08] MEDS: NACL 0.9% IRRIG POUR BOTTLE 900 ML, GENTAMICIN SULFATE INJ 160 MG, ceFAZolin 2 GM, POVI... IRRIGATION (08:57)
--- NOTE | 2024-08-08 11:48 | WPDANESPN ---
Anes - Prog Note Post-Op Date/Time: 08/08/24 11:48 Cardiovascular status: normal Respiratory status: normal Airway patency: baseline Mental status: baseline Post-Op hydration status: normal Vital Signs: Last Vital Signs Temp 36.4 C L 08/08/24 11:45 Pulse 96 08/08/24 11:45 Resp 14 08/08/24 11:45 BP 117/74 08/08/24 11:45 Pulse Ox 100 08/08/24 11:45 O2 Del Method Simple Face Mask 08/08/24 11:45 O2 Flow Rate 6 08/08/24 11:45 Pain Score (VAS): 0/10 I/O: Intake & Output 08/07/24 08/08/24 08/08/24 23:59 07:59 15:59 Intake Total 50 Balance 50 Patient Feedback: Patient satisfied with anesthetic care.
--- NOTE | 2024-08-08 12:04 | SUR.PHASEI ---
PT AWAKE AND RESTING QUIETLY. ASKING FOR A PEPSI. STATES PAIN 4/10 AND TOLERABLE.
--- NOTE | 2024-08-08 12:24 | SUR.PHASEI ---
LATE NOTE, 1200; CLARIFIED ORDER WITH DR GOODEN REGARDING SCOPE PATCH. UNLESS PT IS HAVING NAUSEA, MAY PLACE PRN.
[2024-08-08] MEDS: oxyCODONE HCL (*CRX) 5 MG TAB IR PO (12:46)
--- OUTSIDE RECORDS SUMMARY | 2024-08-09 21:12 | XMS_ITS | Referral Summary ---
Author Organization [facility] Building B Address [address] [place] [address] Care Team Providers Care Machining And Assembly Supervisor Name Role Phone Daniel Nevarez MD Primary Care Provider [phone] Yayo Nieto DPM Unavailable [phone] Encounters Date Type Department Care Team Description 07/26/2024 Orders Only [facility] [address] [id number] Daniel Nevarez MD 06/01/2024 Orders Only [facility] Operating Room [address] [place] [address] Yayo Nieto DPM 06/01/2024 1:30 PM [employer] S[employer] LOAD [employer] UNLOAD - 06/01/2024 3:00 PM [employer]TER LOAD [employer] UNLOAD Surgery [facility] Operating Room [address] [place] [address] Yayo Nieto DPM KOREY BUNIONECTOMY- WITH 3.0MM MIKE SCREW 06/01/2024 1:59 PM [employer] LO[employer] UNLOAD Anesthesia Event [facility] Operating Room [address] [place] [address] Chi Mason MD [place], Emenike Adolphus Jr., MD 06/01/2024 11:38 AM [employer] LOAD [employer] UNLOAD - 06/01/2024 4:31 PM [employer] LO[employer] UNLOAD Hospital Encounter [facility] Operating Room [address] [place] [address] Yayo Nieto DPM Bunion of right foot [...] Colonoscopy utd Mammogram utd WWE utd with STORY TELLER DM-annual visual examination and podiatry visits every [...] healthier, we can set up appointment with ship scraper/stock crane operator. Have an active lifestyle, strive for 30 [...] man. Assessment & Plan (08/27/2021 1:38 PM P[employer]ER [employer] SORTER LOAD AND UNLOAD): 1. Eat a healthy diet: focus on lean meats and proteins, more fruits, vegetables and whole grains and low in sugars and fats. Limit red meat and avoid processed meat. 2. Maintain a healthy weight; avoid being overweight. Aim for a normal body mass index (BMI) of 18.5-24.9. Help learning to eat healthier, we can set up appointment with ship scraper/stock crane operator. 3. Have an active lifestyle, strive for [...] & Plan (03/30/2022 10:43 AM CDT): 12/26/19 AL=890 HDL=35 HU=900 LDL=57 TC/HDL=4.8 RJQFEB=690 09/08/21 KZ=114 HDL=32 AT=809 LDL=88 TC/HDL=5 HYRIVK=166 Has appt tomorrow for hormonal pellets; to have labs drawn. Will send results to us via Youxiduo. Reviewed diet/exercise recommendations. Assessment & Plan (08/27/2021 1:38 PM P[employer]ER [employer] SORTER LOAD AND UNLOAD): 12/26/19 MU=624 HDL=35 BE=468 LDL=57 TC/HDL=4.8 ILKNCD=597 Lipid panel ordered; will call w/results when received. Reviewed diet/exercise recommendations. Mild episode of recurrent major depressive disor khang 08/27/2021 Assessment & Plan (03/30/2022 10:25 AM CDT): escitalopram 20mg daily. Reports good control of depression w/current regimen. No changes to be made at this time. Reviewed med Ses & scheduling. Reviewed red flags. Assessment & Plan (08/27/2021 2:12 PM P[employer]ER [employer] SORTER LOAD AND UNLOAD): escitalopram 20mg daily. Reports good control of depression w/current regimen. No changes to be made at this time. Reviewed med Ses & scheduling. Reviewed red flags. Primary osteoarthritis of right hip 05/21/2021 Burning mouth syndrome 12/21/2019 Assessment & Plan (03/30/2022 10:38 AM CDT): Working w/dentist for treatment. They are discussing [facility]. Assessment & Plan (08/27/2021 2:14 PM PICKER [employer] SORTER LOAD AND UNLOAD): Reviewed neg Sjogren ab [address] Dr Patino. Discussed gingermints/josh tea, biotene products. Type 2 diabetes mellitus wit hout complication, without long-term current use of insulin ([facility]) 01/24/2019 Assessment & Plan (04/18/2024 3:14 PM [...] 07/01/2018 Assessment & Plan (08/03/2023 2:06 PM P[employer]ER [employer] SORTER LOAD AND UNLOAD): Neurovascularly intact. She will call pain management today for follow-up. Will E scribed Flexeril to take. Discussed the sedative affects so use with caution. Will monitor response. Elevated testosterone level in female 02/15/2018 Overview (02/15/2018): Managed by to be in [place]. Lumbar facet arthropathy 09/04/2017 Trochanteric bursitis of both hips 09/04/2017 Assessment & Plan (09/04/2017 8:30 PM P[employer]ER [employer] SORTER LOAD AND UNLOAD): Chronic-injections done in January by Dr. Mora. Following up with him prn. Using hydrocodone prn. Attention deficit disorder 02/05/2015 Overview (08/30/2017): ADHD dx 6 yrs Assessment & Plan (04/18/2024 3:14 PM CDT): Well controlled on Vyvanse 20 mg. Tolerating without side effects. No changes. Will continue to monitor. Assessment & Plan (08/03/2023 2:07 PM P[employer]ER [employer] SORTER LOAD AND UNLOAD): Will down titrate to Vyvanse 20 mg [...] flags. Assessment & Plan (08/27/2021 2:10 PM PICKER [employer] SORTER LOAD AND UNLOAD[place] in the past 12 mos. Has not had filled since seeing Dr Jensen in 2018. Worsening focus/concentration w/increased stress running [employer]. vyvanse 20mg daily filled. Aware to monitor weight/HR/BP. Reviewed medication side effects and scheduling. Reviewed red flags. Aware that she will need to be seen every 3 months. Assessment & Plan (09/04/2017 8:15 PM P[employer]ER [employer] SORTER LOAD AND UNLOAD): Well controlled with Vyvanse. Will continue with 20 mg daily. GERD (gastroesophageal reflux disease) 4 Overview (04/07/2022): GERD (gastroesophageal reflux disease) Assessment & Plan (09/04/2017 8:16 PM PICKER [employer] SORTER LOAD AND UNLOAD): Well controlled with Nexium Migraine without aura and wi thout status migrainosus, not intractable 11/08/2012 Overview (10/21/2016): Migraines Assessment & Plan (08/03/2023 2:07 PM P[employer] S[employer]TER LOAD AND UNLOAD): Chronic intermittent. Exacerbated with recent neck pain [...] 08/27/2021 Assessment & Plan (08/27/2021 1:39 PM P[employer] SORTER LOAD AND UNLOAD): Reviewed need to lose weight, reviewed health benefits. Reviewed recommendations for daily intake & activity 20-30 minutes/day. Influenza vaccine administered 08/27/2021 11/26/2021 Assessment & Plan (08/27/2021 1:39 PM P[employer]ER [employer] SORTER LOAD AND UNLOAD): Flu vaccine given today. Discussed possible tenderness/redness at injection site. Encounter for screening colonoscopy 05/28/2021 08/27/2021 Overview (05/28/2021): Added automatically from request for surgery [id number] Impingement syndrome of right shoulder 07/27/2019 08/27/2021 Overview (07/27/2019): Added automatically from request for surgery [id number] Arthritis of right acromioclavicular joint 07/27/2019 08/27/2021 Overview (07/27/2019): Added automatically from request for surgery [id number] Incomplete tear of right rotator cuff 07/27/2019 08/27/2021 Overview (07/27/2019): Added automatically from request for surgery [id number] Biceps tendinitis of right upper extremity 07/27/2019 08/27/2021 Overview (07/27/2019): Added automatically from request for surgery [id number] Chondromalacia of patella 06/30/2018 Injury, other and unspecifie d, knee, leg, ankle, and foot 06/30/2018 08/27/2021 Pre-diabetes 02/02/2018 03/30/2022 Mood disorder (CMS/HCC) 02/02/201808/18 Stomatitis and mucositis 02/02/201804/2022 Bilateral chronic knee pain 09/04/2017 08/27/2021 Assessment & Plan (09/04/2017 8:27 PM PICKER [employer] SORTER LOAD AND UNLOAD): Saw Dr Mora, orthopedist in December 2016. X-rays indicated no significant arthritis noted. On Meloxicam. Using Hydrocodone prn. BMI 27.0-27.9,adult 09/04/2017 02/03/20 18 Assessment & Plan (09/04/2017 8:32 PM PICKER [employer] SORTER LOAD AND UNLOAD): Obesity is increased by 10 lbs since [...] often do you attend chur ch or hindu services? 1 to 4 times per year 03/22/2023 Do you belong to any clubs o r organizations such as taoism groups, unions, fraternal or athletic groups, or [...] staff should administer the PHQ-9) 0 01/12/2024 [facility] - Occupational [...] place to sleep or slept in a jail (including now)? No 03/22/2023 Personal Safety Answer Date Recorded Have you ever been in or are you currently in a harmful physical or emotional relationship or is someone making you feel afraid or unsafe? 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 Not on file Not on file Last Filed Vital Signs Vital Sign Reading Time Taken Comments Blood Pressure 117/72 06/01/2024 4:25 PM [employer] LO[employer] UNLOAD Pulse 67 06/01/2024 4:25 PM [employer] LO[employer] UNLOAD Temperature 36.4 ??C (97.6 ??F) 06/01/2024 4:25 PM CS T Respiratory Rate 20 06/01/2024 4:25 PM [employer]TER LO[employer] AND UNLOAD Oxygen Saturation 99% 06/01/2024 4:25 PM PICK[employer] SORTER LO[employer] AND UNLOAD Inhaled Oxygen Concentration - - Weight 74.9 kg (165 lb 2 oz) 06/01/2024 11:50 AM [employer]TER LO[employer] AND UNLOAD Height 170.2 cm (5' 7 ) 06/01/2024 11:50 AM P[employer]TER LO[employer] AND UNLOAD Body Mass Index 25.86 06/01/2024 11:50 AM [employer] S[employer]TER LO[employer] UNLOAD Plan of Treatment Not on file Goals [...] home safety. Medical Devices Implanted Type Area Photo Machine Operator Device Identifier Shelf Expiration Date Model / Serial / Lot [employer]/Or tho 4565 Implant Medium Arthroscopic Bioinductive W/ Delivery Device - [id number] Implanted:Qty: 1 on 08/09/2019 by Kareem Olmedo MD at [facility] Right: Shoulder [employer]/Or tho 02/22/2022 4565 / / [id number] [employer] 2504-1 Regenerate Tendon [place] Suture - [id number] Implanted:Qty: 1 on 08/09/2019 by Kareem Olmedo MD at [facility] Right: Shoulder [employer] 12/23/2019 2504-1 / / [id number] Bone Anchors Implanted:Qty: 1 on 08/09/2019 by Kareem Olmedo MD at [facility] Right: Shoulder [employer] [id number] 03/10/2022 [id number] / / [id number] [employer] Asnis 3mm 22mm 5mm Self Cut Cannulated Color Coded Low Profile [id number] - [id number] Implanted:Qty: 1 on 06/01/2024 by Yayo Nieto DPM at [facility] Right: Foot [employer] [id number] / / Procedures Procedure Name Priority Date/Time Associated Diagnosis Comments XR FOOT RIGHT 2 VIEWS IP Routine 06/01/2024 3:47 PM P[employer] S[employer] LO[employer] UNLOAD Bunion of right foot FL FLUOROSCOPY < 1 HOUR IP Routine 06/01/2024 3:47 PM PICK[employer] SORTER LO[employer] AND UNLOAD Bunion of right foot CT AN ELECTIVE SUPRAGLOTTIC AIRWAY Routine 06/01/2024 2:13 PM PICKER [employer] SORTER LOAD AND UNLOAD BUNIONECTOMY/HAMMERT OE REPAIR/OSTEOTOMY 06/01/2024 1:44 PM PICK[employer] SORTER LOAD AND UNLOAD HALLUX ABDUCTO VALGUS RIGHT FOOT ANESTHESIA PERIPHERAL BLOCK Routine 06/01/2024 12:45 PM PICK[employer] SORTER LOAD AND UNLOAD POTASSIUM, WHOLE BLOOD STAT 06/01/2024 12:08 PM PICK[employer] SORTER LOAD AND UNLOAD POCT GLUCOSE DEVICE Routine 06/01/2024 1 2:07 PM P[employer] SORTER LOAD AND UNLOAD SURGICAL PATHOLOGY Routine 06/01/2024 11 :01 AM PICKER [employer] SORTER LOAD AND UNLOAD EGFR Routine 04/16/2024 1:31 PM CDT Type 2 diabetes mellitus without complication, without long-term current use of insulin (CMS/HCC) ([facility]) Lipid screening LIPID PANEL Routine 04/16/2024 1:31 PM CDT Type 2 diabetes mellitus without complication, without long-term current use of insulin (CMS/HCC) ([facility]) Lipid screening HEMOGLOBIN A1C Routine 01/10/2024 10:52 AM CDT Type 2 diabetes mellitus without complication, without long-term current use of insulin (CMS/HCC) ([facility]) ALBUMIN CREATININE RATIO, URINE Routine 01/10/2024 10:52 [...] for viral disease COLONOSCOPY 09/17/2021 9:55 AM PICK[employer] SORTER LOAD AND UNLOAD DIABETIC EYE EXAM Routine 06/26/2021 HM PAP SMEAR WITH HPV Routine 05/01/2017 from Last 3 Months or Most Recently Relevant to Health Maintenance Results * FL Fluoroscopy < 1 Hour (06/01/2024 3:47 PM P[employer] S[employer] LOAD AND UNLOAD) Narrative [facility] - 06/01/2024 3:47 PM P[employer] SORTER LOAD AND UNLOAD The images from this study are not interpreted by Radiology. ??Please refer to the physician's procedure / OR operative note. Yayo Nieto DPM IMG FLUOROSCOPY PROCEDURES Final Result [facility] * XR Foot Right 2 Views (06/01/2024 3:47 PM P[employer] SORTER LOAD AND UNLOAD) Anatomical Region Laterality Modality Lower Extremities, Foot Right Radio Fl uoroscopy 06/03/2024 5:35 PM P[employer] SORTER LOAD AND UNLOAD Narrative 06/03/2024 5:36 PM PICKER [employer] SORTER LOAD AND UNLOAD EXAM DESCRIPTION: XR FOOT RIGHT 2 VIEWS [...] PM T: ??06/03/2024 5:36 PM Report ID: [id number] Reading Location: ??[id number] Procedure Note Nawaf Gutierrez MD - 06/03/2024 [...] Nawaf Gutierrez M.D. MF: [id number] Report ID: [id number] Reading Location: [id number] Yayo Nieto DPM IMG XR PROCEDURES Final Re sult * CT AN ELECTIVE SUPRAGLOTTIC AIRWAY (06/01/2024 2:13 PM PICKER [employer] SORTER LOAD AND UNLOAD) Narrative Elliot Mendez CRNA - 06/01/2024 2:13 PM P[employer] SORTER LOAD AND UNLOAD Elliot Mendez CRNA ? 06/01/2024 ??2:13 PM [...] LMA placement. No GERD sx today. Result [facility] Chi Mason MD ANESTHESIA ORDERABLES Final Result * Peripheral Block (06/01/2024 12:45 PM PICKER [employer] SORTER LOAD AND UNLOAD) Narrative Chi Mason MD - 06/01/2024 12:45 PM PICKER [employer] SORTER LOAD AND UNLOAD Chi Mason MD ? 06/01/2024 12:45 PM [...] * Potassium, whole blood (06/01/2024 12:08 PM P[employer]ER [employer] SORTER LOAD AND UNLOAD) Potassium, bld 3.7 3.3 - 4.9 mmol/L Comment: Interpretive Data This method is not able to assess for hemolysis, which may falsely increase potassium concentrations. If further testing is needed to evaluate this result, consider in-laboratory plasma potassium. Current Interpretive Data was last revised on 2022. Blood 06/01/2024 12:0 8 PM PICKER [employer] SORTER LOAD AND UNLOAD 06/01/2024 12:13 PM PICKER [employer] SORTER LOAD AND UNLOAD us Chi Mason MD LAB BLOOD ORDERABLES F inal Result Performing Organization Address City/[facility]/ZIP Co de Phone Number JESSE GOMEZ ([place]) [address] [place] [address] * POCT glucose (06/01/2024 12:07 PM PICKER [employer] SORTER LOAD AND UNLOAD) Glucose, POC 93 70 - 199 mg/dL Blood 06/01/2024 12:0 7 PM PICKER [employer] SORTER LOAD AND UNLOAD 06/01/2024 12:07 PM PICKER [employer] SORTER LOAD AND UNLOAD us Yayo Nieto DP LAB POCT ORDERABLES - DUANE CE Final Result Performing Organization Address [facility] de Phone Number JESSE GOMEZ ([place]) [address] [place] [address] Department [place] [address] * Surgical pathology (06/01/2024 11:01 AM PICKER AND SORTER LOAD AND UNLOAD) Bone Fragment(s), 06/01/2024 11:01 AM PICKER AND SORTER LOAD AND UNLOAD 06/04/2024 11:01 AM PICKER [employer] SORTER LOAD AND UNLOAD Narrative 06/06/2024 4:27 PM PICKER [employer] SORTER LOAD AND UNLOAD EPIC results best viewed via link to PDF [facility] Department of Pathology [address] [place] [address] Note to Patients: This report may contain [...] details. Final Report Patient Name: ??SANDER SOLANO Address: ??[address] [place] [address], ??[place], [place] ??[address] Gender: ??F : ??1970 (Age: 53) Service: ??Surgery Location: ??[facility] Hospital #: ??[id number] Patient Type: ??[facility] Accession # ?[id number] Taken: ??06/01/2024 Received: ??06/04/2024 Accessioned: ??06/04/2024 Reported: [...] determined by the Surgical Pathology Department at [facility] as part of an ongoing manufacturing quality inspector program and in compliance with federally mandated [...] characteristics determined by the Surgical Pathology Department [facility]. ??It has not been cleared or approved [...] 04/16/2024 6:02 PM CDT us Luisa Llanes TRANSPORTATION SERVICES REPRESENTATIVE LAB BLOOD ORDERABLES Final Result Performing Organization Address City/State/ZIP Co ok Phone Number JESSE SANTOS [address] Department [place] [address] * Lipid panel (04/16/2024 1:31 PM CDT) [...] CDT 04/16/2024 6:00 PM CDT Luisa Llanes TRANSPORTATION SERVICES REPRESENTATIVE LAB BLOOD ORDERABLES Final Result CHRISTOPHJESSICA [address] [facility] Department [place] [address] * Albumin Creatinine Ratio, Urine (01/10/2024 10:52 AM CDT) Albumin Ur <12.0 mg/L Comment: Interpretive Data No reference range established. Current interpretive data was last revised 2018. Testing performed by: [address] [address] Creatinine Ur 14.7 mg/dL JESSE GOMEZ (MICHAEL) Comment: Interpretive Data No reference range established. Current interpretive data was last revised 2018. Testing performed by: [address] [address] Albumin Creatinine Ratio, Ur See Comment 1 - 29 JESSE GOMEZ (MICHAEL) Comment: Unable to calculate Testing performed by: [address] [address] Urine 01/10/2024 10:5 2 AM CDT 01/10/2024 12:36 PM CDT Luisa Llanes NP LAB URINE ORDERABLES Final Result Performing Organization Address [facility] Co de Phone Number JESSE GOMEZ ([place]) [address] [facility] [place] [address] * Hemoglobin A1c (01/10/2024 10:52 AM CDT) Hgb A1C 5.2 4.0 - 5.6 % Comment:Testing performed by : [facility], [address] [place] [address]., [id number] Estimated Average Glucose 103 mg/dL JESSE GOMEZ ([place]) Comment: The ADA recommends reporting an estimated Average Glucose (eAG) with all Hemoglobin A1c results using the equation derived from a study of 507 normal and diabetic adults. ??Minority populations were underrepresented and children were not included. ?? (Diabetes Care 31:4254-1754, 2008). ??The eAG is not equivalent to a fasting glucose. Testing performed by: [facility], [address] [place] [address]., [address] Blood 01/10/2024 10:5 2 AM CDT 01/10/2024 12:36 PM CDT Luisa Llanes NP LAB BLOOD ORDERABLES Final Result Performing Organization Address [facility] de Phone Number JESSE GOMEZ ([place]) [address] [place] [address] * Screening Mammogram Bilateral W Amrik W [...] last revised on 2019. Testing performed by: [facility], [address] [place] [address]., [address] Blood 03/31/2023 7:33 AM CDT 03/31/2023 11:06 AM CDT Karla Hua MD LAB MICROBIOLOGY - GENE RAL ORDERABLES Final Result JESSE GOMEZ ([place]) 1 [facility] Department [place] [address] * COLONOSCOPY (09/17/2021 9:55 AM P[employer] S[employer]TER LOAD AND UNLOAD) Anatomical Region Laterality Modality Other Narrative Procedure Note Jose Mccauley MD - 09/17/2021 9:55 AM CST [facility] Patient Name: Sander Solano Procedure Date: 09/17/2021 9:55 AM Date of : 1970 Admit Type: Outpatient Age: 51 Gender: Female Attending MD: Jose Mccauley M.D. Room: [facility] ENDOSCOPY ROOM 2 Note Status: Finalized Patient [...] scope was passed under direct vision. TheColonoscope [id number] was introduced through the anus and advanced [...] malignant neoplasm of colon CPT copyright 2020 [employer]. All rights reserved. The codes documented in this report are preliminary and upon certified medical coder reviewmay be revised to meet current compliance requirements. Recognized by the [employer] for promoting quality in endoscopy us Jose Mccauley MD ENDOSCOPY PROCEDURES Final Re sult * (ABNORMAL) Diabetic Eye Exam (06/26/2021) us Historical Provider HEALTH MAINTENANCE Final Result * PAP SMEAR WITH HPV (05/01/2017) HM Pap smear Normal us Historical Provider HEALTH MAINTENANCE Final Result from Last 3 Months or Most Recently Relevant to Health Maintenance Insurance [facility] CHOICE PLUS [facility] CHOICE PLUS [facility] CHOICE PLUS Advance Directives For more information, please contact: [phone] * Full Code (Latest Code Status on File) Date Activated Date Inactivated Comments 09/17/2021 10:12 AM 09/17/2021 4:23 PM * Full Code Date Activated Date Inactivated Comments 09/17/2021 10:12 AM 09/17/2021 10:12 AM Care Teams Machining And Assembly Supervisor Relationship Specialty Start Date End Date Daniel Nevarez MD [address] [place] [address] PCP - General Family Medicine 12/20/19 Yayo Nieto DPM [address] [place] [address] Consulting Physician Orthotics 06/01/24
--- OUTSIDE RECORDS SUMMARY | 2024-08-09 21:12 | XMS_ITS | CONTINUITY OF CARE DOCUMENT ---
Author Name olindadarien olindadarien Address Unknown Organization [facility] Address [address] [facility] [address] [place] [address] Phone [phone] Care Team Providers Care Mri Manager Name Role Phone Milton Arango MD Unavailable [phone] FERNANDA SCOTT, JOHN Unavailable [phone] JOHN MICHAEL MD Unavailable [phone] PROBLEMS Condition Status Date Provider Notes SYNCOPE [...] daily Elodia UMANZORGRA-D 12 HOUR 60-120 MG [id number] active 1 tablet twice daily as needed [...] Payer name Policy type / Coverage type [employer] red green party ID [facility] [id number] Other [id number] TREATMENT PLAN Date Name Performer new pt: O rders: E vent Recorder (*) C omplete Echo (CPT-98790) C arotid Duplex Bilateral (CPT-97821) T ilt Table Test (CPT-38182) Milton Arango MD Date Name Tilt Table Test Carotid Duplex Bilat eral Complete Echo Event Recorder HISTORY OF PROCEDURES Procedure Date Procedure Name Provider Procedure Notes S tatus EKG Milton Arango MD completed
--- OUTSIDE RECORDS SUMMARY | 2024-08-09 21:12 | XMS_ITS | Patient Health Summary ---
Author Organization [facility] [employer] Address [address] [place] [address] Care Team Providers Care Progressive Care Unit Registered Nurse Name Role Phone Unavailable Primary Care Provider Unavailabl e Note from [facility] [employer] [facility] [employer],non-owned Affiliates and Associated Physician Practices is amultiple site organization consisting of ambulatory clinics and hospital sitesin [place], [place], [place] and [place]. This disclosure is being madepursuant to the Care Everywhere program and may not contain all information available regarding this patient. Last updated 18.[facility] [employer] Allergies No known active allergies Medications * [...] 02/01/2011) Results * DERMATOPATHOLOGY (07/05/2023 3:33 AM [facility]) Case Report Dermatopathology Report ? Case: [id number] ? Authorizing Provider: ??Bakari Sanchez MD ?Collected: ? 07/05/2023 03:33 AM ? Ordering Location: ? [facility] ? Received: ?07/06/2023 03:46 PM ? Pathologist: ? Rosario Juarez MD ? Specimens: ?? A) - Skin, below left medial clvicle ? B) - Skin, left upper chest ? C) - Skin, posterior left shoulder ? 3 4:14 PM [facility] Final Diagnosis Specimen A. SKIN, below left medial clvicle: SOLAR LENTIGO (L81.4) Specimen B. SKIN, left upper chest: LICHEN PLANUS-LIKE KERATOSIS (BENIGN LICHENOID KERATOSIS) (L82.1) POST-INFLAMMATORY PIGMENT ALTERATION (L81.9) FOCAL ACANTHOLYTIC DERMATOSIS, CONSISTENT WITH (L11.1) (see microscopic description and comment) Specimen C. 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 Jar 0. 3 4:14 PM [facility] Microscopic Description Specimen [...] were obtained and reviewed. 3 4:14 PM [facility] Disclaimer An external and internal positive and negative controls are appropriate for the histochemical, immunohistochemical and immunofluorescence stain(s) in this case (if any), except where stated explicitly. The performance characteristics of the stain(s) cited in this report were developed and its performance characteristic determined by the Dermatopathology Laboratory at [facility], directed by Dr. Dmitriy Willoughby. These tests need not be, and therefore are not, approved by the [place] Food and Drug Administration. The tests are used for clinical purposes. Billing Codes Specimen Charges Stain Charges 76208 [id number] 1 1 1 3 4:14 PM [facility] Embedded Images 3 4:14 PM [facility] Pathology/Cytology TISSUE SPECIMEN FROM SKIN / Unknown 07/05/2023 3:33 AM [facility] [facility] 07/06/2023 3:46 PM [facility] Miscellaneous samples (specimen) TISSUE SPECIMEN FROM SKIN / Unknown 07/05/2023 3:33 AM [facility] [facility] 07/06/2023 3:46 PM [facility] [facility] Miscellaneous samples (specimen) TISSUE SPECIMEN FROM SKIN / Unknown 07/05/2023 3:33 AM [facility] 07/06/2023 3:46 PM [facility] [facility] Bakari Sanchez MD LAB - PATHOLOGY/CYTO LOGY ORDERABLES Performing Organization Address City/State/[facility] Co de Phone Number DERMATOPATHOLOGY LABORATORY [facility] - Department of Dermatology [address], [address] [phone] * CARDIAC RHYTHM STRIP ORDER (02/04/2011 9:56 [...]
--- OUTSIDE RECORDS SUMMARY | 2024-08-09 21:12 | XMS_ITS | Clinical Summary ---
Author Organization [facility] [employer] Address [address] [place] [address] Care Team Providers Care Motel Keeper Name Role Phone Unavailable Primary Care Provider Unavailabl e Source Comments [facility] [employer],non-owned Affiliates and Associated Physician Practices is amultiple site organization consisting of ambulatory clinics and hospital sitesin [place], [place], [place] and [place]. This disclosure is being madepursuant to the Care Everywhere program and may not contain all information available regarding this patient. Last updated 18.[facility] Allergies No known active allergies Medications * [...]
--- OUTSIDE RECORDS SUMMARY | 2024-08-09 21:12 | XMS_ITS | Clinical Summary ---
Author Organization [facility] Address [address], [facility] [address] [place] [address] Phone Care Team Providers Care Departmental Buyer Name Role Phone Austin Sterling NP Primary [...] age to complete this topic Care Teams Departmental Buyer Relationship Specialty Start Date End Date Austin Sterling NP PCP - General Family Medicine 01/24/19
--- OUTSIDE RECORDS SUMMARY | 2024-08-09 21:12 | XMS_ITS | Clinical Summary ---
Author Organization [facility] Medical Office Building B Address [address] [place] [address] Care Team Providers Care Sports Lawyer Name Role Phone Daniel Nevarez MD Primary Care Provider [phone] Yayo Nieto DPM Unavailable [phone] Allergies No known active allergies Medications spironolactone [...] Colonoscopy utd Mammogram utd WWE utd with LINE SERVICE PERSON DM-annual visual examination and podiatry visits every [...] healthier, we can set up appointment with cuff cutter/boom conveyor operator. Have an active lifestyle, strive for [...] man. Assessment & Plan (08/27/2021 1:38 PM ANESTHESIOLOGIST ASSISTANT): 1. Eat a healthy diet: focus on lean meats and proteins, more fruits, vegetables and whole grains and low in sugars and fats. Limit red meat and avoid processed meat. 2. Maintain a healthy weight; avoid being overweight. Aim for a normal body mass index (BMI) of 18.5-24.9. Help learning to eat healthier, we can set up appointment with cuff cutter/boom conveyor operator. 3. Have an active lifestyle, strive [...] & Plan (03/30/2022 10:43 AM CDT): 12/26/19 KT=688 HDL=35 ER=251 LDL=57 TC/HDL=4.8 VVIXFY=865 09/08/21 WI=843 HDL=32 FJ=827 LDL=88 TC/HDL=5 AZHLHR=590 Has appt tomorrow for hormonal pellets; to have labs drawn. Will send results to us via And[employer]. Reviewed diet/exercise recommendations. Assessment & Plan (08/27/2021 1:38 PM ANESTHESIOLOGIST ASSISTANT): 12/26/19 XL=646 HDL=35 IH=395 LDL=57 TC/HDL=4.8 GZACBX=622 Lipid panel ordered; will call w/results when received. Reviewed diet/exercise recommendations. Mild episode of recurrent major depressive disor khang 08/27/2021 Assessment & Plan (03/30/2022 10:25 AM CDT): escitalopram 20mg daily. Reports good control of depression w/current regimen. No changes to be made at this time. Reviewed med Ses & scheduling. Reviewed red flags. Assessment & Plan (08/27/2021 2:12 PM ANESTHESIOLOGIST ASSISTANT): escitalopram 20mg daily. Reports good control of depression w/current regimen. No changes to be made at this time. Reviewed med Ses & scheduling. Reviewed red flags. Primary osteoarthritis of right hip 05/21/2021 Burning mouth syndrome 12/21/2019 Assessment & Plan (03/30/2022 10:38 AM CDT): Working w/dentist for treatment. They are discussing [facility]. Assessment & Plan (08/27/2021 2:14 PM ANESTHESIOLOGIST ASSISTANT): Reviewed neg Gianfranco ab [address] Dr Patino. Discussed gingermints/josh tea, biotene products. Type 2 diabetes mellitus wit hout complication, without long-term current use of insulin ([facility]) 01/24/2019 Assessment & Plan (04/18/2024 [...] 07/01/2018 Assessment & Plan (08/03/2023 2:06 PM ANESTHESIOLOGIST ASSISTANT): Neurovascularly intact. She will call pain management today for follow-up. Will E scribed Flexeril to take. Discussed the sedative affects so use with caution. Will monitor response. Elevated testosterone level in female 02/15/2018 Overview (02/15/2018): Managed by [facility] in [place]. Lumbar facet arthropathy 09/04/2017 Trochanteric bursitis of both hips 09/04/2017 Assessment & Plan (09/04/2017 8:30 PM ANESTHESIOLOGIST ASSISTANT): Chronic-injections done in January by Dr. Mora. Following up with him prn. Using hydrocodone prn. Attention deficit disorder 02/05/2015 Overview (08/30/2017): ADHD dx 6 yrs Assessment & Plan (04/18/2024 3:14 PM CDT): Well controlled on Vyvanse 20 mg. Tolerating without side effects. No changes. Will continue to monitor. Assessment & Plan (08/03/2023 2:07 PM ANESTHESIOLOGIST ASSISTANT): Will down titrate to Vyvanse 20 mg [...] flags. Assessment & Plan (08/27/2021 2:10 PM ANESTHESIOLOGIST ASSISTANT): [place] in the past 12 mos. Has not had filled since seeing Dr Jensen in 2018. Worsening focus/concentration w/increased stress running [employer]. vyvanse 20mg daily filled. Aware to monitor weight/HR/BP. Reviewed medication side effects and scheduling. Reviewed red flags. Aware that she will need to be seen every 3 months. Assessment & Plan (09/04/2017 8:15 PM ANESTHESIOLOGIST ASSISTANT): Well controlled with Vyvanse. Will continue with 20 mg daily. GERD (gastroesophageal reflux disease) 4 Overview (04/07/2022): GERD (gastroesophageal reflux disease) Assessment & Plan (09/04/2017 8:16 PM ANESTHESIOLOGIST ASSISTANT): Well controlled with Nexium Migraine without aura and wi thout status migrainosus, not intractable 11/08/2012 Overview (10/21/2016): Migraines Assessment & Plan (08/03/2023 2:07 PM ANESTHESIOLOGIST ASSISTANT): Chronic intermittent. Exacerbated with recent neck pain [...] 08/27/2021 Assessment & Plan (08/27/2021 1:39 PM ANESTHESIOLOGIST ASSISTANT): Reviewed need to lose weight, reviewed health benefits. Reviewed recommendations for daily intake & activity 20-30 minutes/day. Influenza vaccine administered 08/27/2021 11/26/2021 Assessment & Plan (08/27/2021 1:39 PM ANESTHESIOLOGIST ASSISTANT): Flu vaccine given today. Discussed possible tenderness/redness at injection site. Encounter for screening colonoscopy 05/28/2021 08/27/2021 Overview (05/28/2021): Added automatically from request for surgery [id number] Impingement syndrome of right shoulder 07/27/2019 08/27/2021 Overview (07/27/2019): Added automatically from request for surgery [id number] Arthritis of right acromioclavicular joint 07/27/2019 08/27/2021 Overview (07/27/2019): Added automatically from request for surgery [id number] Incomplete tear of right rotator cuff 07/27/2019 08/27/2021 Overview (07/27/2019): Added automatically from request for surgery [id number] Biceps tendinitis of right upper extremity 07/27/2019 08/27/2021 Overview (07/27/2019): Added automatically from request for surgery [id number] Chondromalacia of patella 06/30/2018 Injury, other and unspecifie d, knee, leg, ankle, and foot 06/30/2018 08/27/2021 Pre-diabetes 02/02/2018 03/30/2022 Mood disorder (CMS/HCC) 02/02/201808/18 Stomatitis and mucositis 02/02/201804/2022 Bilateral chronic knee pain 09/04/2017 08/27/2021 Assessment & Plan (09/04/2017 8:27 PM ANESTHESIOLOGIST ASSISTANT): Saw Dr Mora, orthopedist in December 2016. X-rays indicated no significant arthritis noted. On Meloxicam. Using Hydrocodone prn. BMI 27.0-27.9,adult 09/04/2017 02/03/20 18 Assessment & Plan (09/04/2017 8:32 PM ANESTHESIOLOGIST ASSISTANT): Obesity is increased by 10 lbs since January. . Discussed the patient's BMI. The BMI is above average; BMI management plan is completed. General weight loss/lifestyle modification strategies discussed (elicit support from others; identify saboteurs; non-food rewards, etc). Mammogram abnormal 08/18/2016 8 Encounters Date Type Department Care Team Description 07/26/2024 Orders Only Family Phys[facility] [address] [address] Daniel Nevarez MD 06/01/2024 1:59 PM ANESTHESIOLOGIST ASSISTANT Anesthesia Event [facility] Operating Room [address] [place] [address] Chi Mason MD [place], Emenike Lorenzo Jr., MD 06/01/2024 1:30 PM ANESTHESIOLOGIST ASSISTANT - 06/01/2024 3:00 PM ANESTHESIOLOGIST ASSISTANT Surgery [facility] Operating Room [address] [place] [address] Yayo Nieto, DPM KOREY BUNIONECTOMY- WITH 3.0MM MIKE SCREW 06/01/2024 11:38 AM ANESTHESIOLOGIST ASSISTANT - 06/01/2024 4:31 PM ANESTHESIOLOGIST ASSISTANT Hospital Encounter [facility] Operating Room [address] [place] [address] Yayo Nieto, DPJesse Bunion of right foot Discharge Disposition: Discharge to home or self care 06/01/2024 Orders Only [facility] Operating Room [address] [place] [address] Yayo Nieto DPM from Last 3 Months [...] complication, without long-term current use of insulin ([facility]) (HCC) 01/24/2019 Family History Medical [...] often do you attend chur ch or confucianist services? 1 to 4 times per year 03/22/2023 Do you belong to any clubs o r organizations such as alevism groups, unions, fraternal or athletic groups, or [...] staff should administer the PHQ-9) 0 01/12/2024 [facility] - Occupational Stress [...] place to sleep or slept in a assisted (including now)? No 03/22/2023 Personal Safety Answer Date Recorded Have you ever been in or are you currently in a harmful physical or emotional relationship or is someone making you feel afraid or unsafe? 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 Not on file Not on file Not on file Obstetrics History Para Term AB IAB SAB Ectopic Multiple Livin g Live Births 2 2 2 2 Date Outcome GA Total Labor Labor/2nd/3rd Weight Sex Type Anes PTL Moni A1 A5 Name Clin Term Term Last Filed Vital Signs Vital Sign Reading Time Taken Comments Blood Pressure 117/72 06/01/2024 4:25 PM ANESTHESIOLOGIST ASSISTANT Pulse 67 06/01/2024 4:25 PM ANESTHESIOLOGIST ASSISTANT Temperature 36.4 ??C (97.6 ??F) 06/01/2024 4:25 PM CS T Respiratory Rate 20 06/01/2024 4:25 PM ANESTHESIOLOGIST ASSISTANT Oxygen Saturation 99% 06/01/2024 4:25 PM ANESTHESIOLOGIST ASSISTANT Inhaled Oxygen Concentration - - Weight 74.9 kg (165 lb 2 oz) 06/01/2024 11:50 AM ANESTHESIOLOGIST ASSISTANT Height 170.2 cm (5' 7 ) 06/01/2024 11:50 AM ANESTHESIOLOGIST ASSISTANT Body Mass Index 25.86 06/01/2024 11:50 AM ANESTHESIOLOGIST ASSISTANT Plan of Treatment Health Maintenance Due Date [...] home safety. Medical Devices Implanted Type Area Genetic Counsellor Device Identifier Shelf Expiration Date Model / Serial / Lot [employer]/Or tho 4565 Implant Medium Arthroscopic Bioinductive W/ Delivery Device - [id number] Implanted:Qty: 1 on 08/09/2019 by Kareem Olmedo MD at [facility] Right: Shoulder [employer]/Or tho 02/22/2022 4565 / / [id number] [employer] 2504-1 Regenerate Tendon [place] Suture - [id number] Implanted:Qty: 1 on 08/09/2019 by Kareem Olmedo MD at [facility] Right: Shoulder [employer] 12/23/2019 2504-1 / / [id number] Bone Anchors Implanted:Qty: 1 on 08/09/2019 by Kareem Olmedo MD at [facility] Right: Shoulder [employer] [id number] 03/10/2022 [id number] / / [id number] [place] [employer] Asnis 3mm 22mm 5mm Self Cut Cannulated Color Coded Low Profile [id number] - [id number] Implanted:Qty: 1 on 06/01/2024 by Yayo Nieto DPM at [facility] Right: Foot [employer] [id number] / / Procedures Procedure Name Priority Date/Time Associated Diagnosis Comments XR FOOT RIGHT 2 VIEWS IP Routine 06/01/2024 3:47 PM ANESTHESIOLOGIST ASSISTANT Bunion of right foot FL FLUOROSCOPY < 1 HOUR IP Routine 06/01/2024 3:47 PM ANESTHESIOLOGIST ASSISTANT Bunion of right foot ID AN ELECTIVE SUPRAGLOTTIC AIRWAY Routine 06/01/2024 2:13 PM ANESTHESIOLOGIST ASSISTANT BUNIONECTOMY/HAMMERT OE REPAIR/OSTEOTOMY 06/01/2024 1:44 PM ANESTHESIOLOGIST ASSISTANT HALLUX ABDUCTO VALGUS RIGHT FOOT ANESTHESIA PERIPHERAL BLOCK Routine 06/01/2024 12:45 PM ANESTHESIOLOGIST ASSISTANT POTASSIUM, WHOLE BLOOD STAT 06/01/2024 12:08 PM ANESTHESIOLOGIST ASSISTANT POCT GLUCOSE DEVICE Routine 06/01/2024 1 2:07 PM ANESTHESIOLOGIST ASSISTANT SURGICAL PATHOLOGY Routine 06/01/2024 11 :01 AM ANESTHESIOLOGIST ASSISTANT EGFR Routine 04/16/2024 1:31 PM CDT Type 2 diabetes mellitus without complication, without long-term current use of insulin ([facility]) ([facility]) Lipid screening LIPID PANEL Routine 04/16/2024 1:31 PM CDT Type 2 diabetes mellitus without complication, without long-term current use of insulin ([facility]) ([facility]) Lipid screening HEMOGLOBIN A1C Routine 01/10/2024 10:52 AM CDT Type 2 diabetes mellitus without complication, without long-term current use of insulin ([facility]) ([facility]) ALBUMIN CREATININE RATIO, URINE Routine [...] for viral disease COLONOSCOPY 09/17/2021 9:55 AM ANESTHESIOLOGIST ASSISTANT DIABETIC EYE EXAM Routine 06/26/2021 HM PAP SMEAR WITH HPV Routine 05/01/2017 from Last 3 Months or Most Recently Relevant to Health Maintenance Results * FL Fluoroscopy < 1 Hour (06/01/2024 3:47 PM ANESTHESIOLOGIST ASSISTANT) Narrative [facility] - 06/01/2024 3:47 PM ANESTHESIOLOGIST ASSISTANT The images from this study are not interpreted by Radiology. ??Please refer to the physician's procedure / OR operative note. Yayo Nieto DPM IMG FLUOROSCOPY PROCEDURES Final Result [facility] * XR Foot Right 2 Views (06/01/2024 3:47 PM ANESTHESIOLOGIST ASSISTANT) Anatomical Region Laterality Modality Lower Extremities, Foot Right Radio Fl uoroscopy 06/03/2024 5:35 PM ANESTHESIOLOGIST ASSISTANT Narrative 06/03/2024 5:36 PM ANESTHESIOLOGIST ASSISTANT EXAM DESCRIPTION: XR FOOT RIGHT 2 VIEWS [...] PM T: ??06/03/2024 5:36 PM Report ID: [id number] Reading Location: ??[id number] Procedure Note Nawaf Gutierrez MD - 06/03/2024 [...] Nawaf Gutierrez M.D. MF: [id number] Report ID: [id number] Reading Location: [id number] Yayo Nieto DPM IMG XR PROCEDURES Final Re sult * ID AN ELECTIVE SUPRAGLOTTIC AIRWAY (06/01/2024 2:13 PM ANESTHESIOLOGIST ASSISTANT) Narrative Elliot Mendez CRNA - 06/01/2024 2:13 PM ANESTHESIOLOGIST ASSISTANT Elliot Mendez CRNA ? 06/01/2024 ??2:13 PM [...] Result * Peripheral Block (06/01/2024 12:45 PM ANESTHESIOLOGIST ASSISTANT) Narrative Chi Mason MD - 06/01/2024 12:45 PM ANESTHESIOLOGIST ASSISTANT Chi Mason MD ? 06/01/2024 12:45 PM [...] tolerated procedure well with no complications Result [facility] Chi Mason MD ANESTHESIA ORDERABLES Final Result * Potassium, whole blood (06/01/2024 12:08 PM ANESTHESIOLOGIST ASSISTANT) Potassium, bld 3.7 3.3 - 4.9 mmol/L Comment: Interpretive Data This method is not able to assess for hemolysis, which may falsely increase potassium concentrations. If further testing is needed to evaluate this result, consider in-laboratory plasma potassium. Current Interpretive Data was last revised on 2022. Blood 06/01/2024 12:0 8 PM ANESTHESIOLOGIST ASSISTANT 06/01/2024 12:13 PM ANESTHESIOLOGIST ASSISTANT us Chi Mason MD LAB BLOOD ORDERABLES F inal Result JESSE GOMEZ ([place]) [address] [place] [address] Department [place] [address] * POCT glucose (06/01/2024 12:07 PM ANESTHESIOLOGIST ASSISTANT) Glucose, POC 93 70 - 199 mg/dL Blood 06/01/2024 12:0 7 PM ANESTHESIOLOGIST ASSISTANT 06/01/2024 12:07 PM ANESTHESIOLOGIST ASSISTANT us Yayo BRINKM LAB POCT ORDERABLES - DUANE CE Final Result Performing Organization Address [facility] Co de Phone Number JESSE [facility] ([place]) [address] [place] [address] Department [place] [address] * Surgical pathology (06/01/2024 11:01 AM ANESTHESIOLOGIST ASSISTANT) Bone Fragment(s), 06/01/2024 11:01 AM ANESTHESIOLOGIST ASSISTANT 06/04/2024 11:01 AM ANESTHESIOLOGIST ASSISTANT Narrative 06/06/2024 4:27 PM ANESTHESIOLOGIST ASSISTANT EPIC results best viewed via link to PDF [facility] Department of Pathology [address] [place] [address] Note to Patients: This report may contain [...] Report Patient Name: ??SANDER SOLANO Duncan Address: ??[address] [place] [address], ??[place], [place] ??[address] Gender: ??F : ??1970 (Age: 53) Service: ??Surgery Location: ??[facility] Hospital #: ??[id number] Patient Type: ??[facility] Accession # ?[id number] Taken: ??06/01/2024 Received: ??06/04/2024 Accessioned: ??06/04/2024 Reported: [...] foot. ??Korey bunionectomy - with 3.0 mm [place] screw. ?? Gross Description: Received in a [...] determined by the Surgical Pathology Department at [facility] as part of an ongoing air quality technician program and in compliance with federally [...] determined by the Surgical Pathology Department [facility]. ??It has not been cleared or approved by the U. S. Food and Drug Administration. Note for decalcified specimens: This assay has not been validated on decalcified tissues. Results should be interpreted with caution given the possibility of false negativity on decalcified specimens Yayo Nieto [facility] LAB PATHOLOGY ORDERABLES F inal Result * [...] 04/16/2024 6:02 PM CDT us Luisa Llanes CORRECTIONAL OFFICER CHIEF LAB BLOOD ORDERABLES Final Result JESSE [address] Department [place] [address] * Lipid panel (04/16/2024 1:31 [...] NP LAB BLOOD ORDERABLES Final Result CHRISTOPHJESSICA [id number] [place] [address] Department [place] [address] * Albumin Creatinine Ratio, Urine (01/10/2024 10:52 AM CDT) Albumin Ur <12.0 mg/L Comment: Interpretive Data No reference range established. Current interpretive data was last revised 2018. Testing performed by: [address] [address] Creatinine Ur 14.7 mg/dL JESSE EVANS) Comment: Interpretive Data No reference range established. Current interpretive data was last revised 2018. Testing performed by: [address] [address] Albumin Creatinine Ratio, Ur See Comment 1 - 29 JESSE EVANS) Comment: Unable to calculate Testing performed by: [address] [address] Urine 01/10/2024 10:5 2 AM CDT 01/10/2024 12:36 PM CDT Luisa Llanes NP LAB URINE ORDERABLES Final Result Performing Organization Address [facility]/ZIP Co de Phone Number JESSE GOMEZ ([place]) [address] [place] [address] * Hemoglobin A1c (01/10/2024 10:52 AM CDT) Hgb A1C 5.2 4.0 - 5.6 % Comment:Testing performed by : [address], [address] Estimated Average Glucose 103 mg/dL [facility] ([place]) Comment: The ADA recommends reporting an estimated Average Glucose (eAG) with all Hemoglobin A1c results using the equation derived from a study of 507 normal and diabetic adults. ??Minority populations were underrepresented and children were not included. ?? (Diabetes Care 31:8525-0628, 2008). ??The eAG is not equivalent to a fasting glucose. Testing performed by: [address], [address] Blood 01/10/2024 10:5 2 AM CDT 01/10/2024 12:36 PM CDT Luisa Llanes NP LAB BLOOD ORDERABLES Final Result Performing Organization Address [facility] de Phone Number JESSE GOME[facility] ([place]) [address] [place] [address] * Screening Mammogram Bilateral W Amrik W [...] last revised on 2019. Testing performed by: [facility], [address] [place] [address], [place]., [address] Blood 03/31/2023 7:33 AM CDT 03/31/2023 11:06 AM CDT Karla Hua MD LAB MICROBIOLOGY - [facility] ORDERABLES Final Result JESSE GOMEZ ([place]) 1 [facility] Department [place] [address] * COLONOSCOPY (09/17/2021 9:55 AM ANESTHESIOLOGIST ASSISTANT) Anatomical Region Laterality Modality Other Narrative Procedure Note Jose Mccauley MD - 09/17/2021 9:[address] [facility] Patient Name: Sander Solano Procedure Date: 09/17/2021 9:55 AM Date of : 1970 Admit Type: Outpatient Age: 51 Gender: Female Attending MD: Jose Mccauley M.D. Room: [facility] ENDOSCOPY ROOM 2 Note Status: Finalized Patient [...] scope was passed under direct vision. TheColonoscope [id number] was introduced through the anus and advanced [...] malignant neoplasm of colon CPT copyright 2020 [employer]. All rights reserved. The codes documented in this report are preliminary and upon marine rigger reviewmay be revised to meet current compliance requirements. Recognized by the [employer] for promoting quality [...] Maintenance Insurance [employer] CHOICE PLUS CHOICE PLUS [facility] CHOICE PLUS Advance Directives For more information, please contact: [phone] * Full Code (Latest Code Status on File) Date Activated Date Inactivated Comments 09/17/2021 10:12 AM 09/17/2021 4:23 PM * Full Code Date Activated Date Inactivated Comments 09/17/2021 10:12 AM 09/17/2021 10:12 AM Care Teams Sports Lawyer Relationship Specialty Start Date End Date Daniel Nevarez MD [address] [place] [address] PCP - General Family Medicine 12/20/19 Yayo Nieto DPM [address] [place] [address] Consulting Physician Orthotics 06/01/24
--- OUTSIDE RECORDS SUMMARY | 2024-08-09 21:12 | XMS_ITS | Referral Summary ---
Author Organization [facility] [employer] Address [address] [place] [address] Care Team Providers Care Cath Lab Radiological Technologist Name Role Phone Unavailable Primary Care Provider Unavailabl e Source Comments [facility] [employer],non-owned Affiliates and Associated Physician Practices is amultiple site organization consisting of ambulatory clinics and hospital sitesin [place], [place], [place] and [place]. This disclosure is being madepursuant to the Care Everywhere program and may not contain all informatio navailable regarding this patient. Last updated 18.[employer] Allergies No known active allergies Medications * [...]
--- OUTSIDE RECORDS SUMMARY | 2024-08-09 21:12 | XMS_ITS | Encounter Summary ---
Author Organization [facility] Address [address] [facility] [place] [address] Care Team Providers Care Group Rooms Coordinator Name Role Phone Unavailable Primary Care Provider Unavailabl e Encounter Details Date Type Department Care Team (Late st Contact Info) Description 07/06/2023 Lab Requisition [facility] [address] [facility] [place] [id number] Bakari Sanchez MD [address] [place] [address] Social History Tobacco Use Types [...] Diagnosis Comments DERMATOPATHOLOGY Routine 07/05/2023 3:33 AM ART MODEL documented in this encounter Results * DERMATOPATHOLOGY (07/05/2023 3:33 AM ART MODEL) Case Report Dermatopathology Report ? Case: [id number] ? Authorizing Provider: ??Bakari Sanchez MD ?Collected: ? 07/05/2023 03:33 AM ? Ordering Location: ? [facility] ? Received: ?07/06/2023 03:46 PM ? Pathologist: ? Rosario Juarez MD ? Specimens: ?? A) - Skin, below left medial clvicle ? B) - Skin, left upper chest ? C) - Skin, posterior left shoulder ? 3 4:14 PM [facility] DERMATOPATHOLOGY LABORATORY Final Diagnosis Specimen A. SKIN, below left medial clvicle: SOLAR LENTIGO (L81.4) Specimen B. SKIN, left upper chest: LICHEN PLANUS-LIKE KERATOSIS (BENIGN LICHENOID KERATOSIS) (L82.1) POST-INFLAMMATORY PIGMENT ALTERATION (L81.9) FOCAL ACANTHOLYTIC DERMATOSIS, CONSISTENT WITH (L11.1) (see microscopic description and comment) Specimen C. 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 Jar 0. 3 4:14 PM [facility] DERMATOPATHOLOGY LABORATORY Microscopic Description Specimen [...] were obtained and reviewed. 3 4:14 PM [facility] DERMATOPATHOLOGY LABORATORY Disclaimer An external and internal positive and negative controls are appropriate for the histochemical, immunohistochemical and immunofluorescence stain(s) in this case (if any), except where stated explicitly. The performance characteristics of the stain(s) cited in this report were developed and its performance characteristic determined by the Dermatopathology Laboratory at [facility], directed by Dr. Dmitriy Willoughby. These tests need not be, and therefore are not, approved by the [place] Food and Drug Administration. The tests are used for clinical purposes. Billing Codes Specimen Charges Stain Charges 69239 36971 74344 1 1 1 3 4:14 PM [facility] DERMATOPATHOLOGY LABORATORY Embedded Images 3 4:14 PM [facility] DERMATOPATH[facility]Y LABORATORY Pathology/Cytology TISSUE SPECIMEN FROM SKIN / Unknown 07/05/2023 3:33 AM ART MODEL 07/06/2023 3:46 PM ART [facility] Miscellaneous samples (specimen) TISSUE SPECIMEN FROM SKIN / Unknown 07/05/2023 3:33 AM ART MODEL 07/06/2023 3:46 PM [facility] Miscellaneous samples (specimen) TISSUE SPECIMEN FROM SKIN / Unknown 07/05/2023 3:33 AM ART MODEL 07/06/2023 3:46 PM ART MODEL Bakari Sanchez MD LAB - PATHOLOGY/CYTO LOGY ORDERABLES DERMATOPATHOLOGY LABORATORY [facility] - Department of Dermatology [facility] [address] [place] [address], [address] [phone] documented in this encounter Visit Diagnoses Not on filedocumented in this encounter
--- OUTSIDE RECORDS SUMMARY | 2024-08-09 21:12 | XMS_ITS | Continuity of Care Document ---
Author Organization [facility] Address [address] [place] [address] [place] [phone] Phone Care Team Providers Care Mechanical Developer Prover Name Role Phone Lawrence Garcia DPM Unavailable Unavailable Procedures Procedure Date Medical Record Copy Medical Record Copy Per Page Special Narrative Report Erik 13 Work/Medical Disability Exam RJR 2012 Work/Medical Disability Exam RJR 2011 Advance Directives Directive Yes / No Effective Date File Name No Information Encounters Encounter Description Practice Location Reason(s) For Visit Diagnoses Date Provider Providers Copied on Encounter [facility], [address] [place] [address], [address] [place] [address], tel:[phone] [facility] No Information 3 Jose Bravo. [address] [place] [address], [id number], [place]. tel:[phone] [facility], [address] [place] [address], [id number], [place] tel:[phone] [facility] No Information 3 Administrati ve Provider. [address] [place] [address], [id number], [place]. tel:[phone] Referring Provider: Eran Doyle, [address] [place] [address], [id number] . tel:[phone] [facility], [address] [place] [address], [place], [place], [id number], tel:[phone] [facility] No Information 3 Administrati ve Provider. [address] [place] [address], [place] [address], [place], [place], [id number], . tel:[phone] Referring Provider: Eran Doyle, [address] [place] [address], [place], [place], [address] [place] [address] . tel:[phone] [facility], [address] [place] [address], [place], [place], [address] [place] [address], tel:[phone] [facility] CHONDROMALACIA PATELLAE 3 Administrati ve Provider. [address] [place] [address], [place], [place], [address] [place] [address], . tel:[phone] Referring Provider: Eran Doyle, [address] [place] [address], [place], [place], [address] [place] [address] . tel:[phone] [facility], [address] [place] [address], [place], [place], [id number], tel:[phone] [facility] LOWER LEG INJURY NOS 2 Administrati ve Provider. [address] [place] [address], [place], [place], [address] [place] [address], . tel:[phone] Referring Provider: Eran Doyle, [address] [place] [address], [place], [place], [address] [place] [address] . tel:[phone] Family History Family Member Type Diagnosis Age [...]
== END 2024-08-08 13:10 ==
PROVIDERS: PCP Family Medicine; Visit Provider Surgery Plastic and Reconstructive Surgery
PROC: (CPT 19342; principal; 2024-08-08 08:30)
PROC: (CPT 19316; 2024-08-08 08:30)
DX: N64.81 Ptosis of breast (principal); T85.41XA Breakdown (mechanical) of breast prosthesis and implant, initial encounter; Y83.8 Other surgical procedures as the cause of abnormal reaction of the patient, or of later complication, without mention of misadventure at the time of the procedure
CPT/HCPCS: 19370; 19325; 19316